=== PATIENT | female | born 1945 | race Caucasian/White ===

== ENCOUNTER → 2024-03-09 | Outpatient (CLI) | payer MEDICARE, OTHER, SELFPAY ==
[2024-03-09 17:14] LABS: Basophils # (Auto) 0.1 Thou/mm3 (0.0-0.2); Basophils % (Auto) 1 % (0-2.5); Eosinophils # (Auto) 0.1 Thou/mm3 (0.0-0.5); Eosinophils % (Auto) 1 % (0-10); Hemoglobin 10.4 g/dL (12.0-16.0); Immature Granulocytes % (Auto) 0 % (0-0); Immature Granulocytes Auto 0.02 Thou/mm3 (0.00-0.00); Lymphocytes # (Auto) 2.4 Thou/mm3 (1.0-4.8); Lymphocytes % (Auto) 30 % (10-50); Mean Corpuscular HGB Conc 30.6 g/dl (31.0-37.0); Mean Corpuscular Hemoglobin 23.9 pg (25.0-35.0); Mean Corpuscular Volume 78 fL (80-100); Monocytes # (Auto) 0.8 Thou/mm3 (0.0-0.8); Monocytes % (Auto) 10 % (0-12); Neutrophils # (Auto) 4.7 Thou/mm3 (1.8-7.7); Neutrophils % (Auto) 58 % (37-80); Nucleated Red Blood Cell % 0 /100 WBC (0); Platelet Count 269 Thou/mm3 (140-440); Red Blood Count 4.35 Miln/mm3 (4.00-5.20); White Blood Count 8.2 Thou/mm3 (3.6-11.0)
[2024-03-09 17:40] LABS: Albumin, Serum 3.7 gm/dL (3.4-4.8); Anion Gap 5 (7-16); BUN/Creatinine Ratio 22 Ratio (12-20); Blood Urea Nitrogen 20 mg/dL (9-23); Calcium (Corrected) 9.2 mg/dL (8.5-10.1); Carbon Dioxide 26.2 mMol/L (20.0-31.0); Chloride 108 mMol/L (98-107); Creatinine (Component) 0.9 mg/dL (0.6-1.3); Glucose 72 mg/dL (74-106); Osmolality,Calculated 279 (275-295); Phosphorous 3.3 mg/dL (2.4-5.1); Potassium 4.2 mMol/L (3.4-5.1); Sodium 139 mMol/L (136-145); eGFR > 60 See Note
== END | disposition home or self-care (01) ==
PROVIDERS: PCP Internal Medicine; Referring Provider Internal Medicine; Visit Provider Internal Medicine
DX: D64.9 Anemia, unspecified (principal)
CPT/HCPCS: 36415; 80069; 85025

== ENCOUNTER → 2024-05-03 | Outpatient (CLI) | payer MEDICARE, OTHER, SELFPAY ==
[2024-05-03 14:32] LABS: Basophils # (Auto) 0.1 Thou/mm3 (0.0-0.2); Basophils % (Auto) 1 % (0-2.5); Eosinophils # (Auto) 0.3 Thou/mm3 (0.0-0.5); Eosinophils % (Auto) 3 % (0-10); Hematocrit 36.2 % (36.0-46.0); Hemoglobin 11.4 g/dL (12.0-16.0); Immature Granulocytes % (Auto) 0 % (0-0); Immature Granulocytes Auto 0.02 Thou/mm3 (0.00-0.00); Lymphocytes # (Auto) 2.1 Thou/mm3 (1.0-4.8); Lymphocytes % (Auto) 22 % (10-50); Mean Corpuscular HGB Conc 31.5 g/dl (31.0-37.0); Mean Corpuscular Hemoglobin 26.4 pg (25.0-35.0); Mean Corpuscular Volume 84 fL (80-100); Monocytes # (Auto) 0.8 Thou/mm3 (0.0-0.8); Monocytes % (Auto) 8 % (0-12); Neutrophils # (Auto) 6.2 Thou/mm3 (1.8-7.7); Neutrophils % (Auto) 66 % (37-80); Nucleated Red Blood Cell % 0 /100 WBC (0); Platelet Count 251 Thou/mm3 (140-440); RDW Standard Deviation 65.9 fL (36.4-46.3); Red Blood Count 4.32 Miln/mm3 (4.00-5.20); White Blood Count 9.4 Thou/mm3 (3.6-11.0)
[2024-05-03 15:12] LABS: Anion Gap 9 (7-16); BUN/Creatinine Ratio 23 Ratio (12-20); Blood Urea Nitrogen 27 mg/dL (9-23); Calcium 9.4 mg/dL (8.3-10.6); Calcium (Corrected) 9.4 mg/dL (8.5-10.1); Carbon Dioxide 29.1 mMol/L (20.0-31.0); Chloride 103 mMol/L (98-107); Creatinine (Component) 1.2 mg/dL (0.6-1.3); Glucose 85 mg/dL (74-106); Osmolality,Calculated 285 (275-295); Phosphorous 4.5 mg/dL (2.4-5.1); Potassium 4.4 mMol/L (3.4-5.1); Sodium 141 mMol/L (136-145); eGFR 46 See Note
== END | disposition home or self-care (01) ==
LOC: COPL 13:07
PROVIDERS: PCP Internal Medicine; Referring Provider Internal Medicine; Visit Provider Internal Medicine
DX: I11.0 Hypertensive heart disease with heart failure (principal)
CPT/HCPCS: 36415; 80069; 85025

== ENCOUNTER → 2024-07-14 | Outpatient (CLI) | payer MEDICARE, OTHER, MEDICAID, SELFPAY ==
[2024-07-14 11:28] LABS: Basophils % (Auto) 1 % (0-2.5); Eosinophils # (Auto) 0.2 Thou/mm3 (0.0-0.5); Eosinophils % (Auto) 2 % (0-10); Hematocrit 37.2 % (36.0-46.0); Hemoglobin 12.1 g/dL (12.0-16.0); Immature Granulocytes % (Auto) 0 % (0-0); Immature Granulocytes Auto 0.02 Thou/mm3 (0.00-0.00); Lymphocytes # (Auto) 2.5 Thou/mm3 (1.0-4.8); Lymphocytes % (Auto) 31 % (10-50); Mean Corpuscular HGB Conc 32.5 g/dl (31.0-37.0); Mean Corpuscular Hemoglobin 28.3 pg (25.0-35.0); Mean Corpuscular Volume 87 fL (80-100); Monocytes # (Auto) 0.6 Thou/mm3 (0.0-0.8); Monocytes % (Auto) 8 % (0-12); Neutrophils # (Auto) 4.7 Thou/mm3 (1.8-7.7); Neutrophils % (Auto) 58 % (37-80); Nucleated Red Blood Cell % 0 /100 WBC (0); Platelet Count 211 Thou/mm3 (140-440); RDW Standard Deviation 57.2 fL (36.4-46.3); Red Blood Count 4.28 Miln/mm3 (4.00-5.20)
[2024-07-14 11:40] LABS: Glucose Estimated Average 100 mg/dL (80-131); Hemoglobin A1C 5.1 % Hgb (4.8-6.0)
[2024-07-14 11:44] LABS: Alanine Aminotransferase 40 U/L (10-49); Albumin, Serum 3.6 gm/dL (3.4-4.8); Albumin/Globulin Ratio 1.4 (1.2-2.2); Alkaline Phosphatase 83 U/L (46-116); Anion Gap 6 (7-16); Aspartate Amino Transferase 42 U/L (0-34); B-Type Natriuretic Peptide 565 pg/mL (0-100); BUN/Creatinine Ratio 19 Ratio (12-20); Bilirubin,Total 0.8 mg/dL (0.3-1.2); Blood Urea Nitrogen 21 mg/dL (9-23); Calcium 8.8 mg/dL (8.3-10.6); Calcium (Corrected) 9.1 mg/dL (8.5-10.1); Carbon Dioxide 30.6 mMol/L (20.0-31.0); Cardiac Risk Estimate 2.6 RATIO (3.7-5.6); Chloride 105 mMol/L (98-107); Cholesterol 120 mg/dL (132-200); Creatinine (Component) 1.1 mg/dL (0.6-1.3); Free T4 (Free Thyroxine) 1.25 ng/dL (0.89-1.76); Globulin 2.6 gm/dL (2.3-3.5); Glucose 84 mg/dL (74-106); HDL Cholesterol 46 mg/dL (40-60); LDL Cholesterol,Calculated 62 mg/dL (0-130); Osmolality,Calculated 285 (275-295); Sodium 142 mMol/L (136-145); Thyroid Stimulating Hormone 2.47 uIU/mL (0.55-4.78); Total Protein 6.2 gm/dL (5.7-8.2); Triglycerides 61 mg/dL (30-150); eGFR 51 See Note
[2024-07-14 11:48] LABS: Ferritin 36 ng/mL (7.3-270.7); Iron 43 mcg/dL (50-170); Total Iron Binding Capacity 290 mcg/dL (250-425)
[2024-07-14 11:49] LABS: Vitamin B12 540 pg/mL (211-911)
== END | disposition home or self-care (01) ==
LOC: COPL 10:24
PROVIDERS: PCP Internal Medicine; Referring Provider Internal Medicine; Visit Provider Internal Medicine
DX: E11.9 Type 2 diabetes mellitus without complications (principal); E55.9 Vitamin D deficiency, unspecified; I11.0 Hypertensive heart disease with heart failure; I50.42 Chronic combined systolic (congestive) and diastolic (congestive) heart failure
CPT/HCPCS: 36415; 80053; 80061; 82306; 82607; 82728; 83036; 83540; 83550; 83880; 84439; 84443; 85025

== ENCOUNTER 2024-10-18 10:17 | Inpatient (IN) | payer MEDICARE, MEDICAID, OTHER, SELFPAY ==
[2024-10-18] VITALS (16 sets, daily range): BP systolic 71–216; BP diastolic 40–90; PULSE 70–99; RESP 17–33; TEMP 36.3–37; O2SAT 95–99; BMI 23.7
--- NOTE | 2024-10-18 11:01 | XR_ITS ---
Examination: AP chest single view Technique one AP portable upright chest single view Date and time: October 18, 2024 1118 hours Comparison January 31, 2024 INDICATIONS: Shortness of breath dyspnea today FINDINGS: Normal heart size Prominent vascular congestion including central vascular engorgement Early septal edema at the lung bases No lobar pneumonia Prominent osteopenia IMPRESSION: Early heart failure
--- NOTE | 2024-10-18 11:03 | EKG_ITS ---
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
[2024-10-18] MEDS: FUROSEMIDE INJ 10 MG/ML VIAL 2 ML 40 MG IVP (11:07)
[2024-10-18] MEDS: hydrALAZINE INJ 20 MG/ML VIAL 10 MG IVP ×2 (11:11→12:57)
--- NOTE | 2024-10-18 11:15 | EDNOTE_ITS ---
ED SOB =RME/HPI General Chief Complaint: Shortness of Breath/Dyspnea Stated Complaint: SOB Time Seen by Provider: 10/18/24 10:39 Arrival date/time: 10/18/24 10:17 Limitations: no limitations RME / HPI RME / HPI Narrative: Send 9-year-old female is here today for increased shortness of breath. She is brought in by EMS. She states she has had increased shortness of breath for the past 3 days. She normally uses 1.5 L of oxygen by nasal cannula but has had an increase this to 4 L. She states she has worsening exertional dyspnea and orthopnea. She has known CHF and takes furosemide 40 mg once daily. She also has a history of hypertension. No history of ACS or thrombus. She states she lives in apartment with family friends. She has had no syncopal episodes or falls. She has no abdominal pain, nausea, vomiting. Related Data Home Medications ?Medication ?Instructions ?Recorded ?Confirmed atorvastatin 40 mg tablet (Lipitor) 40 mg PO QMORNING #0 tabs 06/12/16 10/18/24 carvedilol 25 mg tablet (Coreg) 25 mg PO BID #0 tabs 0 06/12/16 10/18/24 valsartan 160 mg tablet (Diovan) 160 mg PO BID 3 10/18/24 alprazolam 0.5 mg tablet (Xanax) 0.5 mg PO BID 4 10/18/24 amiodarone 100 mg tablet 100 mg PO QDAY 02/01/2409/27 furosemide 40 mg tablet 40 mg PO QDAY 02/01/2410/18 nitroglycerin 0.4 mg sublingual 0.4 mg buccal Q5MIN IA N Chest Pain 02/01/24 10/18/24 tablet (Nitrostat) potassium chloride 10 mEq 10 meq PO QDAY 02/01/2409/27 tablet,extended release (Klor-Con) sertraline 50 mg tablet (Zoloft) 75 mg PO QDAY 4 10/18/24 amiodarone 200 mg tablet 200 mg PO QDAY 10/18/2409/27 fluticasone propionate 50 2 spray intranasal QDAY PRN 06/23/25 06/23/25 mcg/actuation nasal allergy symptoms spray,suspension valsartan 80 mg tablet 80 mg PO QDAY 10/18/2410/18 Previous Rx's ?Medication ?Instructions ?Recorded empagliflozin 10 mg tablet 10 mg PO QDAY #30 tabs 12/19 (Jardiance) pantoprazole 40 mg tablet,delayed 40 mg PO BID #60 tab s 02/03/24 release ferrous sulfate 325 mg (65 mg 325 mg PO Q OTHER DAY #3 0 tabs 02/04/24 iron) tablet Allergies Allergy/AdvReac Type Severity Reaction Status Date / Time shellfish derived Allergy Severe Swelling Verified 06/12/22 11:08 of Lip/Tongue/Throat Review of Systems Review of Systems Systems Reviewed: All systems reviewed, normal except as documented ED Exam General Limitations: Present no limitations General appearance: Present alert and other (Patient is ill-appearing but nontoxic appearing.) Head Head exam: Present atraumatic Eye Eye exam: Present normal appearance, PERRL and EOMI ENT ENT exam: Present normal exam, normal oropharynx and mucous membranes moist Neck Neck exam: Present normal inspection, full ROM and trachea midline Chest Chest inspection: Present normal inspection and symmetric chest wall rise Respiratory Respiratory exam: Present other (Patient has rhonchi throughout the lung tones. She is mild to moderately tachypneic at 24 breaths/min) Cardiovascular Cardiovascular exam: Present regular rate, normal rhythm and normal heart sounds Abdominal Exam Abdominal exam: Present soft and normal bowel sounds Extremities Exam Extremities exam: Present normal inspection and full ROM Back Exam Back exam: Present normal inspection and full ROM Neurological Exam Neurological exam: Present alert, oriented X3 and CN II-XII intact Psychiatric Psychiatric exam: Present normal affect and normal mood Skin Skin exam: Present warm, dry, intact and normal color Course Quality Measures none Orders Category Date Time Status COVID-19 Screening Questionnaire NOW Care 10/18/24 11:17 Active COVID-19 Screening Questionnaire NOW Care 10/18/24 12:36 Completed Decision to Admit X1 Care 10/18/24 12:35 Completed EKG (ED ONLY) *Do not use* NOW Care 10/18/24 11:03 Completed EKG (ED Only) Stat Exams 10/18/24 11:03 Draft XR chest 1V Stat Exams 10/18/24 11:01 Completed BNP [B-Type Natriuretic Peptide] Stat Lab 10/18/24 11:16 Completed CBC Stat Lab 10/18/24 11:16 Completed CMP [Comprehensive Metabolic Panel] Stat Lab 10/18/24 11:16 Completed Lipid Panel Stat Lab 10/18/24 12:44 Completed Mag [Magnesium] Stat Lab 10/18/24 11:16 Completed Troponin I Stat Lab 10/18/24 12:44 Completed Furosemide [Lasix Inj] Med 10/18/24 11:01 Discontinued 40 mg IVP X1 ONE Morphine Inj Med 10/18/24 12:14 Discontinued 2 mg IVP X1 ONE carVEDILOL [Coreg] Med 10/18/24 11:15 Discontinued 25 mg PO X1 ONE hydrALAZINE INJ [Apresoline Inj] Med 10/18/24 11:01 Discontinued 10 mg IVP X1 ONE hydrALAZINE INJ [Apresoline Inj] Med 10/18/24 12:34 Discontinued 10 mg IVP X1 ONE Vital Signs Vital signs: Vital Signs Temperature 98.5 F 10/18/24 10:22 Pulse Rate 70 10/18/24 10:22 Respiratory Rate 20 10/18/24 10:22 Blood Pressure 204/47 H 10/18/24 10:22 Pulse Oximetry (%) 98 10/18/24 10:22 Shortness of Breath / Dyspnea MDM Narrative MDM Narrative:: Send 9-year-old female is here today for increased shortness of breath. She is brought in by EMS. She states she has had increased shortness of breath for the past 3 days. She normally uses 1.5 L of oxygen by nasal cannula but has had an increase this to 4 L. She states she has worsening exertional dyspnea and orthopnea. She has known CHF and takes furosemide 40 mg once daily. She also has a history of hypertension. No history of ACS or thrombus. She states she lives in apartment with family friends. She has had no syncopal episodes or falls. She has no abdominal pain, nausea, vomiting. During the ER course, patient received doses of hydralazine in addition to her carvedilol. She received 40 mg of furosemide. We may consider nitro if her blood pressure remains elevated. Patient was brought in by EMS. She is found to have mild hypoxia on scene and was placed on supplemental oxygen via nasal cannula. Review of chart notes reveal that she has a history of CAD and stents placed in 2006 with a history of atrial fibrillation. Case discussed with attending ER physician. At approximately 12:42 PM. Medicine was contacted for admission Case was discussed. Patient data External records reviewed:: EMS form Clinical information provided by:: patient Social determinants that could affect healthcare access:: none Patient has the following chronic illnesses:: CHF, coronary artery disease, atrial fibrillation How is presenting disease/condition affected by chronic disease/condition?: exacerbated by Evaluation data The following diagnostics were reviewed and interpreted by me:: lab results (Patient has a mild leukocytosis at 11.4 thousand, she has no metabolic deran gement, creatinine 0.7. Liver enzymes with an AST of 389, ALT 303. BNP is 1460.), radiology exam(s) (Mild cardiomegaly with mild vascular congestion.) and EKG tracing(s) (Normal sinus rhythm at [address] changes or dynamic T waves. Voltage criteria met for LVH.) Lab and/or radiology exams considered but not ordered:: Patient has no leukocytosis, she has elevated liver enzymes and a elevated BNP. Interpretation Summary: consistent with acute CHF Medications / Prescriptions Medications or Prescriptions considered but not ordered:: n/a Medication administrations:: Medication Administration History Acetaminophen (Acetaminophen 325 Mg Tablet) 650 mg PO Q6H PRN PRN Reason: PAIN SCALE 1-3 (mild Stop: 11/17/24 12:48 Albuterol/Ipratropium (Albuterol/Ipratropium (Duoneb) Rt Kia 3 Ml Nebu) 3 ml INH Q8HRRT MARLEN Stop: 11/17/24 22:59 Alprazolam (Alprazolam 0.25 Mg Tablet) 0.5 mg PO BID MARLEN Stop: 10/23/24 20:59 Last Admin: 10/18/24 21:03 Dose: 0.5 mg Documented By: AM Amiodarone HCl (Amiodarone Hcl 200 Mg Tablet) 100 mg PO QDAY MARLEN Stop: 11/17/24 15:14 Last Admin: 10/18/24 16:06 Dose: 100 mg Documented By: DB Atorvastatin Calcium (Atorvastatin Calcium 20 Mg Tablet) 40 mg PO DAILY MARLEN Stop: 11/17/24 15:14 Last Admin: 10/18/24 16:06 Dose: 40 mg Documented By: DB Azithromycin (Azithromycin 250 Mg Tablet) 250 mg PO QDAY MARLEN Stop: 10/26/24 08:59 Carvedilol (Carvedilol 12.5 Mg Tablet) 12.5 mg PO BIDWM [facility] Stop: 11/17/24 17:29 Last Admin: 10/18/24 17:40 Dose: 12.5 mg Documented By: MGD Ferrous Sulfate (Ferrous Sulf 325 Mg Tablet) 325 mg PO Q48H [facility] Stop: 11/17/24 15:14 Last Admin: 10/18/24 16:03 Dose: 325 mg Documented By: DB Furosemide (Furosemide Inj 10 Mg/Ml 4ml Vial) 40 mg IVP QDAY [facility] Stop: 11/18/24 08:59 Guaifenesin (Guaifenesin Syrup 200 Mg/10 Ml Udc) 100 mg PO QID PRN; Protocol PRN Reason: COUGH Stop: 11/17/24 17:13 Heparin Sodium (Porcine) (Heparin Sod Inj 5000 Unit/Ml Vial) 5,000 unit SC Q8HR [facility] Stop: 11/01/24 13:59 Last Admin: 10/18/24 21:03 Dose: 5,000 unit Documented By: AM Co-signed By: SS Admin: 10/18/24 16:08 Dose: 5,000 unit Documented By: DB Co-signed By: JOSE Ceftriaxone Sodium/Dextrose (Rocephin/D5w 1gm Iv Premix) 1 gm in 50 mls @ 100 mls/hr IV QDAY [facility] Stop: 10/25/24 13:44 Last Infusion: 10/18/24 16:15 Dose: Infused Documented By: Admin: 10/18/24 15:46 Dose: 100 mls/hr Documented By: DB Nitroglycerin (Nitroglycerin 0.4 Mg Subl Btl #25) 0.4 mg SL Q5MIN PRN PRN Reason: Chest Pain Stop: 11/17/24 15:03 Ondansetron HCl (Ondansetron Inj 2 Mg/Ml Inj 2 Ml) 4 mg IVP Q6H PRN; Protocol PRN Reason: NAUSEA OR VOMITING Stop: 11/17/24 12:48 Last Admin: 10/18/24 13:02 Dose: 4 mg Documented By: DB Pantoprazole Sodium (Pantoprazole Inj 40 Mg Vial) 40 mg IVP QDAY [facility] Stop: 11/18/24 08:59 Sertraline HCl (Sertraline Hcl 25 Mg Tablet) 75 mg PO QDAY [facility] Stop: 11/18/24 08:59 Valsartan (Valsartan 80 Mg Tablet) 80 mg PO QDAY [facility] Stop: 11/18/24 08:59 Discontinued Medications Azithromycin (Azithromycin 250 Mg Tablet) 500 mg PO X1 ONE Stop: 10/18/24 13:31 Last Admin: 10/18/24 16:04 Dose: 500 mg Documented By: BYRON Carvedilol (Carvedilol 12.5 Mg Tablet) 25 mg PO X1 ONE Stop: 10/18/24 11:16 Last Admin: 10/18/24 12:35 Dose: 25 mg Documented By: JOSE Furosemide (Furosemide Inj 10 Mg/Ml Vial 2 Ml) 40 mg IVP X1 ONE Stop: 10/18/24 11:02 Last Admin: 10/18/24 11:07 Dose: 40 mg Documented By: JOSE Furosemide (Furosemide Inj 10 Mg/Ml 4ml Vial) 40 mg IVP BIDD [facility] Stop: 11/17/24 17:59 Hydralazine HCl (Hydralazine Inj 20 Mg/Ml Vial) 10 mg IVP X1 ONE Stop: 10/18/24 11:02 Last Admin: 10/18/24 11:11 Dose: 10 mg Documented By: JOSE Hydralazine HCl (Hydralazine Inj 20 Mg/Ml Vial) 10 mg IVP X1 ONE Stop: 10/18/24 12:35 Last Admin: 10/18/24 12:57 Dose: 10 mg Documented By: BYRON Morphine Sulfate (Morphine Sulf Inj 10 Mg/Ml Vial) 2 mg IVP X1 ONE Stop: 10/18/24 12:15 Last Admin: 10/18/24 12:56 Dose: 2 mg Documented By: BYRON Potassium Chloride (Potassium Chloride 20 Meq Tabcr) 40 meq PO X1 ONE Stop: 10/18/24 12:52 Last Admin: 10/18/24 16:07 Dose: 40 meq Documented By: BYRON Sodium Chloride (Sodium Chloride Rt 10% 15 Ml Nebu) 5 ml INH X1 ONE Stop: 10/18/24 13:31 See above Consultations Consultation(s) initiated? (list below): No Diagnosis Shortness of Breath Differential Diagnosis: congestive heart failure, community acquired pneumonia and asthma with exacerbation Most likely diagnosis given after review of the tests above:: Acute CHF, elevated liver enzymes Admission Indicated Admission indicated?: indicated Admission Request Was there a request for admission?: Yes Admission Attestation Admission request attestation: Discussed case with [] from Hospitalist service regarding admission. Discussed patients ED course, exam findings, labs, and radiology results. The Hospitalist [agrees,declines] to accept the patient for admission. Disposition Plan Disposition Plan: Admit Discharge Plan Plan Patient Disposition: Admit Acute Care w/in Hospital Problem List Clinical Impression: Acute exacerbation of CHF (congestive heart failure), Elevated liver enzymes
[2024-10-18 11:38] LABS: Basophils # (Auto) 0.1 Thou/mm3 (0.0-0.2); Basophils % (Auto) 0 % (0-2.5); Eosinophils % (Auto) 0 % (0-10); Hematocrit 39.5 % (36.0-46.0); Hemoglobin 12.9 g/dL (12.0-16.0); Immature Granulocytes % (Auto) 0 % (0-0); Immature Granulocytes Auto 0.05 Thou/mm3 (0.00-0.00); Lymphocytes # (Auto) 1.2 Thou/mm3 (1.0-4.8); Lymphocytes % (Auto) 11 % (10-50); Mean Corpuscular HGB Conc 32.7 g/dl (31.0-37.0); Mean Corpuscular Hemoglobin 29.9 pg (25.0-35.0); Mean Corpuscular Volume 91 fL (80-100); Monocytes # (Auto) 0.8 Thou/mm3 (0.0-0.8); Monocytes % (Auto) 7 % (0-12); Neutrophils # (Auto) 9.3 Thou/mm3 (1.8-7.7); Neutrophils % (Auto) 81 % (37-80); Nucleated Red Blood Cell % 0 /100 WBC (0); Platelet Count 176 Thou/mm3 (140-440); RDW Standard Deviation 50.3 fL (36.4-46.3); Red Blood Count 4.32 Miln/mm3 (4.00-5.20); White Blood Count 11.4 Thou/mm3 (3.6-11.0)
[2024-10-18 12:00] LABS: Alanine Aminotransferase 303 U/L (10-49); Albumin, Serum 3.9 gm/dL (3.4-4.8); Albumin/Globulin Ratio 1.5 (1.2-2.2); Alkaline Phosphatase 80 U/L (46-116); Anion Gap 10 (7-16); Aspartate Amino Transferase 389 U/L (0-34); BUN/Creatinine Ratio 20 Ratio (12-20); Bilirubin,Total 1.3 mg/dL (0.3-1.2); Blood Urea Nitrogen 14 mg/dL (9-23); Calcium 8.8 mg/dL (8.3-10.6); Calcium (Corrected) 8.9 mg/dL (8.5-10.1); Carbon Dioxide 27.3 mMol/L (20.0-31.0); Chloride 106 mMol/L (98-107); Creatinine (Component) 0.7 mg/dL (0.6-1.3); Estimated Creatinine Clearance 53.9 mL/min (>60); Globulin 2.6 gm/dL (2.3-3.5); Glucose 92 mg/dL (74-106); Magnesium 2.2 mg/dL (1.6-2.6); Osmolality,Calculated 285 (275-295); Potassium 3.5 mMol/L (3.4-5.1); Sodium 143 mMol/L (136-145); Total Protein 6.5 gm/dL (5.7-8.2); eGFR > 60 See Note
[2024-10-18 12:09] LABS: B-Type Natriuretic Peptide 1460 pg/mL (0-100)
[2024-10-18] MEDS: carVEDILOL 12.5 MG TABLET 25 MG PO (12:35)
--- NOTE | 2024-10-18 12:53 | XR_ITS ---
Examination: Abdomen sonogram, complete Date and time of exam: October 18, 2024 1304 hours INDICATIONS: Elevated liver function tests on laboratory examination today. Technique: Multiple real-time grayscale transabdominal sonographic images of the abdomen have been obtained. Findings: Absent gallbladder Common bile duct 0.7 cm no stones Pancreas obscured by bowel gas Mid and distal aorta visualized not enlarged Liver 11.7 cm fatty infiltration lobular contour mild ascites Normal hepatopedal portal venous flow Patent IVC Right kidney 10.2 cm cortex 1.1 cm Left kidney 10.5 cm cortex 1.3 cm Bilateral moderate hydronephrosis Moderate bilateral renal parenchymal scar formation Spleen 7.8 cm Incidental note partial visualization left pleural effusion IMPRESSION: Cirrhosis Mild ascites No focal liver lesions Moderate bilateral hydronephrosis
[2024-10-18] MEDS: MORPHINE SULF INJ 10 MG/ML VIAL 2 MG IVP (12:56)
[2024-10-18] MEDS: ONDANSETRON INJ 2 MG/ML INJ 2 ML 4 MG IVP (13:02)
[2024-10-18 13:25] LABS: Cardiac Risk Estimate 2.7 RATIO (3.7-5.6); Cholesterol 115 mg/dL (132-200); HDL Cholesterol 43 mg/dL (40-60); LDL Cholesterol,Calculated 52 mg/dL (0-130); Triglycerides 98 mg/dL (30-150)
[2024-10-18 13:25] LABS: Glucose Estimated Average 85 mg/dL (80-131); Hemoglobin A1C 4.6 % Hgb (4.8-6.0)
--- NOTE | 2024-10-18 13:33 | PD.RESHP ---
Documentation for date of: 10/18/24 [facility] History of Present Illness History of present illness: History of Present Illness: This is a 79-year-old female with PMHx of HFpEF EEF 55%, CAD s/p stent 2006, A-fib on AMIODARONE, HTN, presented to the ED with 3 days of worsening SOB. Reports 5 days of upper respiratory symptoms, including cough containing dark yellow sputum. Since, she has been having gradually worsening SOB. She uses home oxygen, usually at night (1-2L), however she has been having to use oxygen almost all day over the last 3 days. This morning, she felt specially short of breath when she was walking to the restroom, to the point where she had to stop and take a break. She lives with a roommate, who called the ambulance this morning to bring to ED. Denies headaches, fever, chills, fall or trauma, chest pain, abdominal pain, N/V/D/C, abnormal bleeding, dysuria, urinary frequency or urgency. Also denies worsening lower extremity swelling, and no swelling was noted on exam. Additionally, she had a UTI 3 weeks ago, but only completed 3 days of ANTIBIOTICS due to poor tolerance. However reports resolution of her symptoms since. Her rn surgical is Dr. Kaye, and her last appointment was 1 month ago. Reports no changes in her meds, continue taking LASIX 40 mg daily as prescribed. She was last admitted in January 2024 for CHF exacerbation and required diuresis at that time. ECHO then showed EF 55%, normal LV size with mild LVH, RV normal size and function, dilated left atrium, mild aortic stenosis, moderate aortic regurg, mild MAC with moderate mitral regurg, mild TR with normal PA pressures. She was discharged on FUROSEMIDE 40 mg daily which she currently is taking. At the time she was also found anemic with Hgb 9.6, believed to be related to low iron stores. EGD done showed ulcers, erosive gastritis and hemorrhage. On exam, she was found to have external hemorrhoids, with streaks of blood in her stool, he did GUAIAC test which was positive. However, Hgb appears stable at 12.9. Past Medical History: HFpEF EF 55%, CAD s/p stent 2006, A-fib on AMIODARONE, HTN Past Surgical History: Right knee replacement, cholecystectomy, tubal ligation. Medications: CARVEDILOL 25 mg BID, LASIX 40 mg daily, AMIODARONE 200 mg daily, VALSARTAN 80 mg daily, ATORVASTATIN 40 mg daily, KCl 10 mg daily, NITROGLYCERIN 0.4 mg PRN, PROTONIX 40 mg daily, JARDIANCE 10 mg daily, SERTRALINE 75 mg daily, FLONASE nasal spray PRN. Allergies: Shellfish allergy ? oral swelling Family History: No relevant family history. Social History: Lives with roommate at home. Denies alcohol, drug or tobacco use. ED Course: Febrile, BP 2 4/47, HR 70, RR 20, satting 98% on 2 L. CBC showed leukocytosis 11.4, Hgb 12.9, PLT 176. CHEM panel showed TB 1.3, AST 389, ALT 303 (LFTs previously normal). BNP 1460, troponin 0.040. UA negative for UTI. CXR showed early heart failure, vascular congestion, no pneumonia. KG shows sinus rhythm, nonspecific T wave abnormalities. Abdominal ultrasound showed cirrhosis, mild ascites, no liver lesion, moderate bilateral hydronephrosis. Reason for admission: Acute hypoxemic respiratory failure in setting of CHF exacerbation requiring oxygen delivery and IV diuresis. Review of Systems Review of Systems Narrative Review of Systems: 12 point system review negative except for above mentioned. Exam Vital Signs Temp Pulse Resp BP Pulse Ox O2 Del Method O2 Flow Rate 98.4 F 79 18 148/76 H 98 Room Air 2 10/18/24 13:00 10/18/24 13:21 10/18/24 13:21 10/18/24 13:21 10/18/24 13:21 10/18/24 13:21 10/18/24 13:00 Narrative Exam GENERAL Normal appearing female, speaks in short sentences, NAD. HEENT NCAT.?NAYANA. Oral mucosa is moist. Patent Nares NECK Supple, nontender, no thyromegaly, no meningismus, possible mild JVD, no step offs CHEST Regular rate and rhythm, mild systolic murmur, no G/R. ABDOMEN Soft, flat, nontender. No guarding/rebound tenderness/masses. Bowel sounds presents EXTREMITIES Did not appreciate significant LE edema bialterally. SKIN Warm and dry, no jaundice/rashes. External anal hemorrhoid, with mild bleed. NEUROMUSCULAR No lumbar or midline, no CVA, no paraspinal muscle spasm or tenderness. Moves all 4 extremities well, with full ROM and good CSM. No focal neurologic deficits. PSYCHIATRY Normal mood and affect, cooperative, no SI or HI or hallucinations. Results: Labs 10/20/24 05:02 10/20/24 05:02 Labs: Short CBC 10/18/24 Range/Units 11:16 WBC 11.4 H (3.6-11.0) Thou/mm3 Hgb 12.9 (12.0-16.0) g/dL Hct 39.5 (36.0-46.0) % Plt Count 176 (140-440) Thou/mm3 BMP 10/18/24 11:16 Sodium 143 Potassium 3.5 Chloride 106 Carbon Dioxide 27.3 BUN 14 Creatinine 0.7 Glucose 92 Calcium 8.8 Cardiac Enzymes 10/18/24 Range/Units 12:44 Troponin I 0.040 (0.0-0.045) ng/mL Liver Function 10/18/24 Range/Units 11:16 Total Bilirubin 1.3 H (0.3-1.2) mg/dL AST 389 H (0-34) U/L ALT 303 H (10-49) U/L Alkaline Phosphatase 80 (46-116) U/L Albumin 3.9 (3.4-4.8) gm/dL Quality Measures Quality Measures VTE prophylaxis Advance care planning discussed with:: patient Medications Home Medications and Allergies Home Medications ?Medication ?Instructions ?Recorded ?Confirmed ?Type atorvastatin 40 mg tablet (Lipitor) 40 mg PO QMORNING #0 tabs 06/12/16 10/18/24 History carvedilol 25 mg tablet (Coreg) 25 mg PO BID #0 tabs 06/12/16 10/18/24 History alprazolam 0.5 mg tablet (Xanax) 0.5 mg PO BID 02/01/24 10/18/24 History furosemide 40 mg tablet 40 mg PO QDAY 02/01/24 10/18/24 History nitroglycerin 0.4 mg sublingual 0.4 mg buccal Q5MIN PRN Chest Pain 02/01/24 10/18/24 History tablet (Nitrostat) potassium chloride 10 mEq 10 meq PO QDAY 02/01/24 10/18/24 History tablet,extended release (Klor-Con) sertraline 50 mg tablet (Zoloft) 75 mg PO QDAY 02/01/24 10/18/24 History amiodarone 200 mg tablet 200 mg PO QDAY 10/18/24 10/18/24 History fluticasone propionate 50 2 spray intranasal QDAY PRN 10/18/24 10/18/24 History mcg/actuation nasal allergy symptoms spray,suspension valsartan 80 mg tablet 80 mg PO QDAY 10/18/24 10/18/24 History Allergies Allergy/AdvReac Type Severity Reaction Status Date / Time shellfish derived Allergy Severe Swelling Verified 06/12/22 11:08 of Lip/Tongue/Throat Visit Medications Acetaminophen (Acetaminophen 325 Mg Tablet) 650 mg PO Q6H PRN PRN Reason: PAIN SCALE 1-3 (mild Stop: 11/17/24 12:48 Carvedilol (Carvedilol 12.5 Mg Tablet) 12.5 mg PO BIDWM [facility] Stop: 11/17/24 17:29 Furosemide (Furosemide Inj 10 Mg/Ml 4ml Vial) 40 mg IVP BIDD [facility] Stop: 11/17/24 17:59 Heparin Sodium (Porcine) (Heparin Sod Inj 5000 Unit/Ml Vial) 5,000 unit SC Q8HR [facility] Stop: 11/01/24 13:59 Ondansetron HCl (Ondansetron Inj 2 Mg/Ml Inj 2 Ml) 4 mg IVP Q6H PRN; Protocol PRN Reason: NAUSEA OR VOMITING Stop: 11/17/24 12:48 Last Admin: 10/18/24 13:02 Dose: 4 mg Pantoprazole Sodium (Pantoprazole Inj 40 Mg Vial) 40 mg IVP QDAY [facility] Stop: 11/18/24 08:59 Valsartan (Valsartan 80 Mg Tablet) 80 mg PO QDAY [facility] Stop: 11/18/24 08:59 Discontinued Medications Carvedilol (Carvedilol 12.5 Mg Tablet) 25 mg PO X1 ONE Stop: 10/18/24 11:16 Last Admin: 10/18/24 12:35 Dose: 25 mg Furosemide (Furosemide Inj 10 Mg/Ml Vial 2 Ml) 40 mg IVP X1 ONE Stop: 10/18/24 11:02 Last Admin: 10/18/24 11:07 Dose: 40 mg Hydralazine HCl (Hydralazine Inj 20 Mg/Ml Vial) 10 mg IVP X1 ONE Stop: 10/18/24 11:02 Last Admin: 10/18/24 11:11 Dose: 10 mg Hydralazine HCl (Hydralazine Inj 20 Mg/Ml Vial) 10 mg IVP X1 ONE Stop: 10/18/24 12:35 Last Admin: 10/18/24 12:57 Dose: 10 mg Morphine Sulfate (Morphine Sulf Inj 10 Mg/Ml Vial) 2 mg IVP X1 ONE Stop: 10/18/24 12:15 Last Admin: 10/18/24 12:56 Dose: 2 mg Potassium Chloride (Potassium Chloride 20 Meq Tabcr) 40 meq PO X1 ONE Stop: 10/18/24 12:52 Assessment & Plan Plan This is a 79-year-old female with PMHx of HFpEF EEF 55%, CAD s/p stent 2006, A-fib on AMIODARONE, HTN, presented to the ED with 3 days of worsening SOB, likely in the setting of respiratory infection. Appreciate recommendations from cardiology team. HFpEF with acute exacerbation Acute hypoxic respiratory failure Possible upper respiratory infection CAD s/p stents 2006 Presenting with 3 days of worsening shortness of breath, required daily 4 L of oxygen, creased from her baseline. Limited day-to-day activity secondary to shortness of breath. Reports compliance with hemodialysis, no signs or symptoms of lower extremity edema, reported baseline urine output without signs of retention. Denies increased fluid intake. CHF exacerbation likely related to URI which started last week. Currently complaining of dark yellow sputum, has mild leukocytosis but no fever. ECHO in 01/2024 showed EF 55%, normal LV size with mild LVH, RV normal size and function, dilated left atrium, mild aortic stenosis, moderate aortic regurg, mild MAC with moderate mitral regurg, mild TR with normal PA pressures. She had a stent in 2006. LHC in 05/2022 showed 40% stenosis of proximal left circumflex artery; Widely patent stent involving left anterior descending artery. She has NITROGLYCERIN prescribed for chest pain, however currently not taking any. On exam she had possible JVD, bilateral lung crackles, but no lower extremity edema. BNP is elevated. CXR showed vascular congestion. CT abdominal pelvis showed small left pleural effusion and trace pericardial effusion. Renal function is normal. COVID was negative. Currently satting well on 2 L NC. Denies chest pain. ? Maintain K > 4.0 and Mg > 2.0 ? Strict GIANNA's ? Fluid restriction 1200 cc daily ? Monitor renal function ? Continue home CARVEDILOL 25 mg BID ? Continue LASIX 40 mg IV BID ? Continue CEFTRIAXONE (10/18 to present) and AZITHROMYCIN (10/18 to present) ? Pending repeat echocardiogram ? Pending influenza A/B, sputum, urine and blood cultures. ? Pending A1c, lipid panel, TSH, free T4 Bilateral moderate hydronephrosis As seen on ultrasound. UA otherwise nonconcerning. Reports adequate urine output at home. CT abdomen showed 2 mm left renal stone, mild bilateral hydronephrosis, bilateral urinary tract infection and cystitis. ? Continue with CEFTRIAXONE as above ? Pending urine culture HTN HLD Aortic stenosis Hx A-fib Per record review, previously had hypertensive emergency with A-fib on EKG which resolved with CARVEDILOL, and continued on AMIODARONE which she currently is taking. EKG this time showed sinus rhythm with nonspecific ST changes. ? Continue home AMIODARONE 200 mg q. day ? Continue home VALSARTAN 80 mg daily ? Continue home CARVEDILOL 25 mg BID ? Continue home ATORVASTATIN 40 mg daily ? Pending lipid panel Hx Iron deficiency anemia External hemorrhoid, with mild bleed External hemorrhoid noted on exam, with mild streaks of blood. GUAIAC test was positive. Although hemoglobin is within normal range. ? Continue home iron supplements ? Daily labs ? Transfuse if Hgb <8 Health maintenance Diet: Cardiac GI prophylaxis: PROTONIX DVT prophylaxis: HEPARIN subcu Antibiotics: CEFTRIAXONE, AZITHROMYCIN CODE STATUS: DNR Disposition: Admitted for CHF exacerbation, requiring IV DIURETICS, pending workup. Case was discussed with attending physician and senior resident. Harshal Mccormick DO PGYI This document was transcribed using voice recognition technology. Minor inaccuracies may be present. Attending Provider Attestation/Addendum Bradford, Alix Giron DO, attest that I was physically present for the gil portions of the service and evaluated the patient with the resident and I reviewed and discussed the case with the resident and agree with the resident's findings and plans of care as documented above Patient is a 79-year-old female with past medical history of CAD, A-fib, hypertension and heart failure with preserved ejection fraction who presents to the ED with 5 days of cough, productive sputum and worsening shortness of breath. At baseline, patient wears 2 L nasal cannula as needed at night. However, she has noted to require using her oxygen almost every day. Patient also noticed increased difficulty with ambulation due to dyspnea on exertion. She was recently treated for a UTI as well, but did not complete the full treatment of her antibiotics. On initial presentation, chest x-ray shows possible early heart failure. Suspect atypical and gram negative pneumonia. Will admit patient to telemetry for acute hypoxic respiratory failure 2/2 pneumonia versus fluid overload 2/2 CHF. Willl continue IV diuresis and titrate O2 as tolerated.
[2024-10-18 14:00] LABS: Hepatitis A Antibody IgM Non Reactive (Non React); Hepatitis B Core Antibody IgM Non Reactive (Non React); Hepatitis B Surface Antigen Non Reactive (Non React); Hepatitis C Antibody Non Reactive (Non React)
[2024-10-18 14:09] LABS: OBS Developer Lot # 424; OBS Performed By BOTED; OBS QC OK? Yes; Occult Blood, Stool Positive (Negative)
--- NOTE | 2024-10-18 14:19 | XR_ITS ---
Examination: CT abdomen and pelvis without contrast. Coronal 3-D reconstructions. Sagittal 2-D reconstructions. Date and time of exam:October 18, 2024 1434 hours INDICATIONS: Bilateral hydronephrosis on renal sonogram today, abdominal pain CTDI: vol (mGy): 5 DLP: (mGycm): 286 Technique: Axial images of the abdomen have been obtained, 3 mm slice thickness Intravenous contrast material has not been administered. Low dose protocols were performed. One or more of the following dose reduction techniques were used; automated exposure control, adjustment of the mA and/or KV according to patient size, use of iterative reconstruction technique. Findings: Mild enlargement cardiac contour, trace pericardial effusion Small left pleural effusion Intrahepatic biliary tract dilatation, absent gallbladder Common bile duct 10 mm no common bile duct stones No pancreatic mass Normal adrenal glands 2 mm left renal calculus Mild bilateral hydronephrosis, wall thickening involving the pelvicalyceal systems No ureteral calculi No pericecal inflammatory change No bowel obstruction No diverticulitis Air in the urinary bladder with urinary bladder wall thickening urinary bladder Worthy catheter Severe osteopenia IMPRESSION: 2 mm left renal calculus Findings most consistent with bilateral urinary tract infection and cystitis
[2024-10-18] MEDS: cefTRIAXone/D5w 1gm IV premix 1 GM/50 ML BAG IV (15:46)
[2024-10-18] MEDS: FERROUS SULF 325 MG TABLET PO (16:03)
[2024-10-18] MEDS: AZITHROMYCIN 250 MG TABLET 500 MG PO (16:04)
[2024-10-18] MEDS: ATORVASTATIN CALCIUM 20 MG TABLET 40 MG PO (16:06)
[2024-10-18] MEDS: AMIODARONE HCL 200 MG TABLET 100 MG PO (16:06)
[2024-10-18] MEDS: POTASSIUM CHLORIDE 20 mEq TABCR 40 MEQ PO (16:07)
[2024-10-18] MEDS: HEPARIN SOD INJ 5000 UNIT/ML VIAL SC ×2 (16:08→21:03)
[2024-10-18 17:07] LABS: COVID-19 Antigen (In-House) Negative (Negative)
[2024-10-18] MEDS: carVEDILOL 12.5 MG TABLET PO (17:40)
--- NOTE | 2024-10-18 17:52 | PD.RESCONSUL ---
HPI Data of Consult Requesting Physician: Alix Giron DO Admitting Provider: Alix Giron DO Attending Provider: Alix Giron DO Primary Care Provider: Tha Swift MD Consult Narrative History of present illness: cc: worsening shortness of breath Patient is a 79-year-old female with a past medical history of CAD status post angioplasty and stent placement (2006), CHF HFpEF 55% (01/31/2024), Aortic fibrillation (Likely paroxysmal),aortic stenosis V-max 2.6, hyperlipidemia, and hypertension. Patient presented to the emergency room via EMS with a chief complaint of shortness of breath starting Friday and worsening today. Patient positive for orthopnea, typically sleeps upright. Denied paroxysmal nocturnal dyspnea likely secondary to home oxygen use only at night, 1.5 L. Dyspnea with exertion. Patient denied lower peripheral edema. Patient denied chest pain or chest pressure. Patient denied any recent sick contacts. Patient denied fevers or chills. Increased cough over the last 3 days, first noted on Friday. Patient overall has been feeling tired and has skipped her medications for the past 3 days. Patient continues to take carvedilol half a dose 25 mg likely half a dose, amiodarone 200, and Jardiance 10 mg daily. Home Lasix dose at 40 mg daily. Patient denied increase fluid intake. Patient denied increased salt intake. No Eliquis noted as part of home medication list. Patient admitted by primary team for acute on chronic chf exacerbation. Cardiology consulted for CHF exacerbation-this is a known patient of Dr. Charles. Vitals BP 204/47, HR 70, RR 20, on 2 L oxygen saturating at 97%--> blood pressure improved 133/79 WBC count 11.4 CMP NA 143, potassium 3.5, chloride 106, bicarb 27.3 BUN 14, creatinine 0.7, GFR greater than 60, A1c 4.6, mag 2.2, total bili 1.3, AST is 389, ALT 303 (elevated) Troponin 0.04 EKG sinus rhythm, QT C388 Lipid panel (10/18/2024) triglycerides 78, cholesterol 115, LDL 52, HDL 43 Stool occult positive (10/18/2024) on iron tablets Medications in the ER: Lasix 40 mg IV push x 1, hydralazine 10 mg IV push x 2, morphine 2 mg IV push x 1, ceftriaxone PMH: Same as above Past Surgical History: Arthroplasty CAD status post stent 2006 Home Medication: Alprazolam 0.5 twice daily Amiodarone 200 daily Atorvastatin for 80 mg p.o. at bedtime Carvedilol 12.5 twice daily (?) Jardiance 10 mg daily Lasix 40 mg daily Nitroglycerin subcu 0.4 as needed Protonix 40 mg daily Sertraline 75 mg daily Valsartan 80 mg daily (?) Past family history Mother diabetes and son heart attack late in life Father heart disease, unsure diagnosis, late 60s Social History: Smoked for about 10 years a pack a day--> [id number] history (early 20s) Denied alcohol use Denied illicit drug use Allergies: Shellfish derived products cc:: cc: Alix Giron, Review of Systems Review of Systems Narrative Review of Systems: General appearance: NO weight change, YES fatigue, NO weakness, NO fever, NO chills, NO night sweats, YES cough Skin: NO rash, NO itching, NO sores, NO moles HEENT: NO Trauma, NO nausea, NO vomiting, NO visual changes, NO blurry vision, NO double vision, NO tinnitus, NO vertigo, NO ear discharge, NO rhinorrhea, NO stuffiness, NO sneezing, NO allergy, NO epistaxis. NO Hoarseness, NO sore throat, NO swollen neck. Cardiac: NO Palpitations, YES dyspnea on exertion, YES orthopnea-baseline sleeps with bed upright, NO paroxysmal nocturnal dyspnea but on home oxygen, NO edema Respiratory: NO Shortness of Breath, NO Wheezing, NO Cough, NO Sputum, NO hemoptysis GI:NO appetite, NO nausea, NO vomiting, NO dysphagia, NO changes in bowel frequency, NO stool color, NO diarrhea, NO constipation, NO hemetemesis, NO hemorrhoids, NO melena, NO hematechezia, NO abdominal pain, NO jaundice Renal: NO frequency, NO hesitancy, NO urgency, NO hematuria, NO nocturia, NO incontinence MSK: NO muscle weakness, NO gout, NO arthritis, NO muscle stiffness Neuro: NO headaches, NO tremors, NO weakness, NO paralysis, NO seizures, NO loss of consciousness, NO numbness. Hem: NO anemia, NO easy bruising/bleeding, NO petechiae, NO purpura Endo: NO heat/cold intolerance, NO excessive sweating, NO polyuria, NO polydipsia, NO polyphagia, NO thyroid problems, NO diabetes Pysch: NO mood, NO anxiety, NO depression Exam Vital Signs Temp Pulse Resp BP Pulse Ox O2 Del Method O2 Flow Rate 98.6 F 75 27 H 153/79 H 99 Nasal Cannula 2 10/18/24 17:31 10/18/24 17:40 10/18/24 17:31 10/18/24 17:40 10/18/24 17:31 10/18/24 17:31 10/18/24 17:31 Narrative Exam General Appearance: Alert & Oriented X3, thin female who is lying in bed in no acute distress HEENT: Skull symmetrical and atraumatic. Conjunctivae pale pink and moist. Pupils equal, round, reactive to light and accommodation (PERRL). Oral mucosa appears dry. Cardio: Normal Rate and Rhythm with S1 and S2 heart sounds. Holosystolic murmur noted over aortic and mitral region. No bruits on carotid auscultation. No peripheral edema or cyanosis. Lungs: Symmetric with good expansion. Chest and back non-tender. Breath sounds vesicular without crackles, wheezing or rhonchi Abdomen: Non-tender, Non-distended, Normal Reactive Bowel Sounds Neuro: Alert, cooperative, oriented to person, place, and time. Speech clear. CN grossly intact. Upper motor strength 5/5 and Lower motor strength 5/5. Sensation intact. Results Labs 10/19/24 05:07 10/19/24 05:07 Labs: Short CBC 10/18/24 Range/Units 11:16 WBC 11.4 H (3.6-11.0) Thou/mm3 Hgb 12.9 (12.0-16.0) g/dL Hct 39.5 (36.0-46.0) % Plt Count 176 (140-440) Thou/mm3 BMP 10/18/24 11:16 Sodium 143 Potassium 3.5 Chloride 106 Carbon Dioxide 27.3 BUN 14 Creatinine 0.7 Glucose 92 Calcium 8.8 Cardiac Enzymes 10/18/24 Range/Units 12:44 Troponin I 0.040 (0.0-0.045) ng/mL Liver Function 10/18/24 Range/Units 11:16 Total Bilirubin 1.3 H (0.3-1.2) mg/dL AST 389 H (0-34) U/L ALT 303 H (10-49) U/L Alkaline Phosphatase 80 (46-116) U/L Albumin 3.9 (3.4-4.8) gm/dL Quality Measures Quality Measures VTE prophylaxis Advance care planning discussed with:: patient Medications Home Medications and Allergies Home Medications ?Medication ?Instructions ?Recorded ?Confirmed ?Type atorvastatin 40 mg tablet (Lipitor) 40 mg PO QMORNING #0 tabs 06/12/16 10/18/24 History carvedilol 25 mg tablet (Coreg) 25 mg PO BID #0 tabs 06/12/16 10/18/24 History valsartan 160 mg tablet (Diovan) 160 mg PO BID 06/12/22 10/18/24 History alprazolam 0.5 mg tablet (Xanax) 0.5 mg PO BID 02/01/24 10/18/24 History amiodarone 100 mg tablet 100 mg PO QDAY 02/01/24 10/18/24 History furosemide 40 mg tablet 40 mg PO QDAY 02/01/24 10/18/24 History nitroglycerin 0.4 mg sublingual 0.4 mg buccal Q5MIN PRN Chest Pain 02/01/24 10/18/24 History tablet (Nitrostat) potassium chloride 10 mEq 10 meq PO QDAY 02/01/24 10/18/24 History tablet,extended release (Klor-Con) sertraline 50 mg tablet (Zoloft) 75 mg PO QDAY 02/01/24 10/18/24 History amiodarone 200 mg tablet 200 mg PO QDAY 10/18/24 10/18/24 History fluticasone propionate 50 2 spray intranasal QDAY PRN 10/18/24 10/18/24 History mcg/actuation nasal allergy symptoms spray,suspension valsartan 80 mg tablet 80 mg PO QDAY 10/18/24 10/18/24 History Allergies Allergy/AdvReac Type Severity Reaction Status Date / Time shellfish derived Allergy Severe Swelling Verified 06/12/22 11:08 of Lip/Tongue/Throat Visit Medications Acetaminophen (Acetaminophen 325 Mg Tablet) 650 mg PO Q6H PRN PRN Reason: PAIN SCALE 1-3 (mild Stop: 11/17/24 12:48 Albuterol/Ipratropium (Albuterol/Ipratropium (Duoneb) Rt Kia 3 Ml Nebu) 3 ml INH Q8HRRT [facility] Stop: 11/17/24 22:59 Alprazolam (Alprazolam 0.25 Mg Tablet) 0.5 mg PO BID [facility] Stop: 10/23/24 20:59 Amiodarone HCl (Amiodarone Hcl 200 Mg Tablet) 100 mg PO QDAY [facility] Stop: 11/17/24 15:14 Last Admin: 10/18/24 16:06 Dose: 100 mg Atorvastatin Calcium (Atorvastatin Calcium 20 Mg Tablet) 40 mg PO DAILY [facility] Stop: 11/17/24 15:14 Last Admin: 10/18/24 16:06 Dose: 40 mg Azithromycin (Azithromycin 250 Mg Tablet) 250 mg PO QDAY [facility] Stop: 10/26/24 08:59 Carvedilol (Carvedilol 12.5 Mg Tablet) 12.5 mg PO BIDWM [facility] Stop: 11/17/24 17:29 Last Admin: 10/18/24 17:40 Dose: 12.5 mg Ferrous Sulfate (Ferrous Sulf 325 Mg Tablet) 325 mg PO Q48H [facility] Stop: 11/17/24 15:14 Last Admin: 10/18/24 16:03 Dose: 325 mg Furosemide (Furosemide Inj 10 Mg/Ml 4ml Vial) 40 mg IVP QDAY [facility] Stop: 11/18/24 08:59 Guaifenesin (Guaifenesin Syrup 200 Mg/10 Ml Udc) 100 mg PO QID PRN; Protocol PRN Reason: COUGH Stop: 11/17/24 17:13 Heparin Sodium (Porcine) (Heparin Sod Inj 5000 Unit/Ml Vial) 5,000 unit SC Q8HR [facility] Stop: 11/01/24 13:59 Last Admin: 10/18/24 16:08 Dose: 5,000 unit Ceftriaxone Sodium/Dextrose (Rocephin/D5w 1gm Iv Premix) 1 gm in 50 mls @ 100 mls/hr IV QDAY [facility] Stop: 10/25/24 13:44 Last Infusion: 10/18/24 16:15 Dose: Infused Nitroglycerin (Nitroglycerin 0.4 Mg Subl Btl #25) 0.4 mg SL Q5MIN PRN PRN Reason: Chest Pain Stop: 11/17/24 15:03 Ondansetron HCl (Ondansetron Inj 2 Mg/Ml Inj 2 Ml) 4 mg IVP Q6H PRN; Protocol PRN Reason: NAUSEA OR VOMITING Stop: 11/17/24 12:48 Last Admin: 10/18/24 13:02 Dose: 4 mg Pantoprazole Sodium (Pantoprazole Inj 40 Mg Vial) 40 mg IVP QDAY [facility] Stop: 11/18/24 08:59 Sertraline HCl (Sertraline Hcl 25 Mg Tablet) 75 mg PO QDAY [facility] Stop: 11/18/24 08:59 Valsartan (Valsartan 80 Mg Tablet) 80 mg PO QDAY [facility] Stop: 11/18/24 08:59 Discontinued Medications Azithromycin (Azithromycin 250 Mg Tablet) 500 mg PO X1 ONE Stop: 10/18/24 13:31 Last Admin: 10/18/24 16:04 Dose: 500 mg Carvedilol (Carvedilol 12.5 Mg Tablet) 25 mg PO X1 ONE Stop: 10/18/24 11:16 Last Admin: 10/18/24 12:35 Dose: 25 mg Furosemide (Furosemide Inj 10 Mg/Ml Vial 2 Ml) 40 mg IVP X1 ONE Stop: 10/18/24 11:02 Last Admin: 10/18/24 11:07 Dose: 40 mg Furosemide (Furosemide Inj 10 Mg/Ml 4ml Vial) 40 mg IVP BIDD [facility] Stop: 11/17/24 17:59 Hydralazine HCl (Hydralazine Inj 20 Mg/Ml Vial) 10 mg IVP X1 ONE Stop: 10/18/24 11:02 Last Admin: 10/18/24 11:11 Dose: 10 mg Hydralazine HCl (Hydralazine Inj 20 Mg/Ml Vial) 10 mg IVP X1 ONE Stop: 10/18/24 12:35 Last Admin: 10/18/24 12:57 Dose: 10 mg Morphine Sulfate (Morphine Sulf Inj 10 Mg/Ml Vial) 2 mg IVP X1 ONE Stop: 10/18/24 12:15 Last Admin: 10/18/24 12:56 Dose: 2 mg Potassium Chloride (Potassium Chloride 20 Meq Tabcr) 40 meq PO X1 ONE Stop: 10/18/24 12:52 Last Admin: 10/18/24 16:07 Dose: 40 meq Sodium Chloride (Sodium Chloride Rt 10% 15 Ml Nebu) 5 ml INH X1 ONE Stop: 10/18/24 13:31 Assessment & Plan Plan Patient is a 79-year-old female with a past medical history of CAD status post angioplasty and stent placement (2006), CHF HFpEF 55% (01/31/2024), Aortic fibrillation (Likely paroxysmal), mild aortic stenosis V-max 2.6, hyperlipidemia, and hypertension. Patient was admitted for CHF exacerbation and acute hypoxic respiratory failure required increased NC. #Acute hypoxic respiratory failure mostly secondary to CHF exacerbation and questionable pneumonia #Acute on Chronic diastolic congestive Heart Failure #CHF HFpEF 55% (01/31/2024) # Mild aortic stenosis, V-max 2.6 Patient has a past medical history of congestive heart failure, patient is unsure what triggered event, but since Friday morning patient has had increased fatigue and weakness. Given mild elevation in AST's and ALT's consider hepatal cardio versus infectious pulmonary cause such as upper respiratory tract infection versus diet noncompliance. Worsening symptoms less likely secondary to an PR as troponins are unremarkable at 0.04 and denied chest pain versus pneumonia. Flu negative Diagnostics Echo 01/31/2024 : Normal LV size. Mild LVH. Estimated EF 55%. RV is normal in size and systolic function.dilated left atrium, mild aortic stensois Vmax 2.6m/sec with mild to moderate aortic regurgitation Mild MAC with moderate mitral regurgitation Mild TR normal PA pressure Chest x-ray early heart failure with prominent vascular congestion Troponin 0.04 BMP 1460 NYHA: III ASCVD: [facility], hold off given AST/ALTs Plan -Lasix 40 twice daily - Aggressive diuresis - Continue carvedilol consider starting at 12.5 mg twice daily/pending dose confirmation - Potassium greater than 4 and magnesium greater than 2 -Echo -Fluid restriction (1500) and in and outs; limits salt intake 2 grams -head of the bed elevated -Daily weight check s -Work toward guideline directed medical treatment, hold off on Jardiance and reevaluate #History Paroxysmal atrial fibrillation Patient has a past medical history of atrial fibrillation, medication includes amiodarone 200 mg p.o. a daily and carvedilol. Consider resuming amiodarone at same dose as patient appears in sinus rhythm. [id number] HAS BLED: 2 points Plan -Holding off Eliquis, as occult blood positive, low suspicion, re-evaluate AM - Potassium greater than 4 and magnesium greater than 2 cafeteria monitor Carvedilol and amiodarone resumed #CAD status post angioplasty and stent (2006) #Hyperlipidemia Patient has no chest pain or chest pressure, EKG does not show any evidence of any ischemia with any ST-T changes troponins negative. Patient has past medical history of hyperlipidemia on statin placement Plan -Hold off on all atorvastatin 40 mg p.o. at bedtime given mild transaminitis - No aspirin listed, consider resuming if low specific suspicion for GI bleed -Continue beta-veronica #Hypertensive emergency, improved #History of hypertension Resume home medication of carvedilol consider starting at 12.5 mg twice daily as patient stated she struggles with hypotension. Valsartan 80 mg daily as a home medication. Plan - Continue to monitor patient's blood pressure - Resume carvedilol at a lower dose 12.5 mg twice daily versus 25 mg twice daily - Consider resuming valsartan 80 mg daily #Luekocytosis #Possible, CAP #Cough Concern possible URI vs CAP vs reactive leukocytosis with chieft complains of productive cough and fatigue. Flu negative. COVID Negative -Ceftraixone and Azithroymcin (10/18/2024) -Sputum Culture -Consider Cocci # Possible cirrhosis likely secondary to CHAVIS #Fatty liver infiltrates with ascites #Hyperbilirubinemia #Transaminitis Patient denied abdominal discomforts or diarrhea. Mild transaminitis likely secondary medication induced as patient is on atorvastatin versus hepatal cardiorenal syndrome versus hepatitis versus less likely secondary to choledocholithiasis as patient has past medical history of cholecystectomy versus CHAVIS Diagnostics CT abdomen pelvis: Common bile duct 10 mm, no common bile duct stones no pancreatic masses. Diagnostics Abdomen ultrasound common bile duct 0.7 mm no stone, liver 11.7 fatty infiltration some lobular contour mild ascites, normal hepatic portal venous flow. Abdomen/Pelvis-2 mm left renal calculus. Mild to bilateal hydronephrosis. AST 389 and ALT 303, Tototal Bilirubin 1.3 Plan - Continue to monitor AST's and ALT's - Consider hepatitis panel-->Negative - Consider holding atorvastatin and also adverse effect of amiodarone - Outpatient follow-up with GI specialist #Essential finding of bilateral hydronephrosis #Leuocytosis #2 mm left renal calculi On admission patient denied any abdominal tenderness or urinary symptoms. No UA on file. Plan -Continue to monitor urine output although stone is small - Continue to monitor for signs infection given leukocytosis -UA culture pending #History of Esophageal Ulcers #Erosive Gastritis w/ hemorrhage Past medical history of esophageal ulcers and erosive gastritis w/ hemorrhage s/p EGD (01/31/2024. Likely underlying cause of occult stool positive vs iron plan -Resume Protonix -Recommended for outpatinet colonoscopy, unsure if patient followed up #Hx of MIcrocytic Anemia #Occult Blood Positive Denied stefany blood, no anemia noted during this admission. Past medical histoyr of Microcytic Anemia, started on iron tables. Health Maintenance: Disp: Pt is currently admitted to floors for further management of admitted for CHF exacerbation, cardiology following. FEN: cardiac DVT: on subQ heparin Code: DNR - The patient's plan was discussed with attending Dr. Sherrie Juarez MD PGY1 Internal Medicine Attending Provider Attestation/Addendum I have personally seen and examined the patient separately on the above date of service and discussed the plan of care with the resident. I reviewed the resident Dr. Kim Juarez consultation progress note and agree with the resident findings and plan in the note above and have also edited the documentation to reflect my findings and plan. Bharat Balderas M.D. Interventional Cardiology
[2024-10-18] MEDS: ALPRazoLAM 0.25 MG TABLET 0.5 MG PO (21:03)
[2024-10-18] MEDS: ALBUTEROL/IPRATROPIUM (Duoneb) RT SOL 3 ML NEBU INH (22:15)
[2024-10-19] VITALS (15 sets, daily range): BP systolic 116–153; BP diastolic 47–57; PULSE 63–76; RESP 14–22; TEMP 36.4–37.4; O2SAT 94–99; BMI 23.5
[2024-10-19] MEDS: guaiFENesin SYRUP 200 MG/10 ML UDC 100 MG PO ×5 (04:29→21:01)
[2024-10-19] MEDS: ACETAMINOPHEN 325 MG TABLET 650 MG PO (04:29)
[2024-10-19] MEDS: HEPARIN SOD INJ 5000 UNIT/ML VIAL SC ×3 (05:31→21:01)
[2024-10-19 06:11] LABS: Basophils # (Auto) 0.1 Thou/mm3 (0.0-0.2); Basophils % (Auto) 1 % (0-2.5); Eosinophils % (Auto) 0 % (0-10); Hematocrit 34.8 % (36.0-46.0); Hemoglobin 11.2 g/dL (12.0-16.0); Immature Granulocytes % (Auto) 0 % (0-0); Immature Granulocytes Auto 0.04 Thou/mm3 (0.00-0.00); Lymphocytes # (Auto) 2.5 Thou/mm3 (1.0-4.8); Lymphocytes % (Auto) 26 % (10-50); Mean Corpuscular HGB Conc 32.2 g/dl (31.0-37.0); Mean Corpuscular Hemoglobin 29.9 pg (25.0-35.0); Mean Corpuscular Volume 93 fL (80-100); Monocytes # (Auto) 0.9 Thou/mm3 (0.0-0.8); Monocytes % (Auto) 9 % (0-12); Neutrophils # (Auto) 6.2 Thou/mm3 (1.8-7.7); Neutrophils % (Auto) 64 % (37-80); Nucleated Red Blood Cell % 0 /100 WBC (0); Platelet Count 163 Thou/mm3 (140-440); RDW Standard Deviation 51.8 fL (36.4-46.3); Red Blood Count 3.74 Miln/mm3 (4.00-5.20); White Blood Count 9.7 Thou/mm3 (3.6-11.0)
[2024-10-19 06:32] LABS: INR 1.1 (0.9-1.3); Prothrombin Time 11.7 Seconds (9.0-12.2)
[2024-10-19 06:34] LABS: Alanine Aminotransferase 339 U/L (10-49); Albumin, Serum 3.2 gm/dL (3.4-4.8); Albumin/Globulin Ratio 1.4 (1.2-2.2); Alkaline Phosphatase 63 U/L (46-116); Anion Gap 8 (7-16); Aspartate Amino Transferase 393 U/L (0-34); BUN/Creatinine Ratio 22 Ratio (12-20); Blood Urea Nitrogen 22 mg/dL (9-23); Calcium 8.3 mg/dL (8.3-10.6); Calcium (Corrected) 8.9 mg/dL (8.5-10.1); Carbon Dioxide 29.1 mMol/L (20.0-31.0); Chloride 106 mMol/L (98-107); Estimated Creatinine Clearance 37.7 mL/min (>60); Free T4 (Free Thyroxine) 1.29 ng/dL (0.89-1.76); Globulin 2.3 gm/dL (2.3-3.5); Glucose 74 mg/dL (74-106); Magnesium 2.1 mg/dL (1.6-2.6); Osmolality,Calculated 287 (275-295); Phosphorous 3.3 mg/dL (2.4-5.1); Potassium 3.9 mMol/L (3.4-5.1); Sodium 143 mMol/L (136-145); Thyroid Stimulating Hormone 1.24 uIU/mL (0.55-4.78); Total Protein 5.5 gm/dL (5.7-8.2); eGFR 57 See Note
[2024-10-19] MEDS: ALBUTEROL/IPRATROPIUM (Duoneb) RT SOL 3 ML NEBU INH ×3 (07:02→22:30)
--- NOTE | 2024-10-19 08:46 | ESPR_ITS ---
Documentation for date of: 10/19/24 Subjective Subjective Interval history: No acute overnight events. Shortness of breath improving, satting well on 2 L NC. Complains of cough but denies fever, chills, headaches, chest pain, sob, GI or urinary symptoms. Exam Vital Signs Temp Pulse Resp BP Pulse Ox O2 Del Method O2 Flow Rate 97.6 F 65 22 H 146/53 H 99 Nasal Cannula 2 10/19/24 07:37 10/19/24 07:37 10/19/24 07:37 10/19/24 07:37 10/19/24 07:37 10/19/24 07:37 10/19/24 07:37 Narrative Exam GENERAL * Normal appearing female, NAD. HEENT * NCAT.?NAYANA. Oral mucosa is moist. Patent Nares NECK * Supple, nontender, no thyromegaly, no meningismus, no JVD, no step offs. CHEST * Regular rate and rhythm, mild systolic murmur, no G/R. ABDOMEN * Soft, flat, nontender. No guarding/rebound tenderness/masses. * Bowel sounds presents EXTREMITIES * Did not appreciate significant LE edema bialterally. SKIN * Warm and dry, no jaundice/rashes. NEUROMUSCULAR * No lumbar or midline, no CVA, no paraspinal muscle spasm or tenderness. * Moves all 4 extremities well, with full ROM and good CSM. * No focal neurologic deficits. PSYCHIATRY * Normal mood and affect, cooperative, no SI or HI or hallucinations. Objective Labs 10/20/24 05:02 10/20/24 05:02 Labs: Laboratory Results - last 24 hr 10/18/24 10/18/24 10/18/24 11:16 12:44 13:53 WBC 11.4 H RBC 4.32 Hgb 12.9 Hct 39.5 MCV 91 MCH 29.9 MCHC 32.7 RDW Std Deviation 50.3 H Plt Count 176 Neut % (Auto) 81 H Lymph % (Auto) 11 [place] % (Auto) 7 Eos % (Auto) 0 Baso % (Auto) 0 Neut # (Auto) 9.3 H Lymph # (Auto) 1.2 [place] # (Auto) 0.8 Eos # (Auto) 0.0 Baso # (Auto) 0.1 Immature Gran # (Auto) 0.05 H Absolute Nucleated RBC 0.00 Immature Gran % 0 Nucleated RBC % 0 PT INR APTT Sodium 143 Potassium 3.5 Chloride 106 Carbon Dioxide 27.3 Anion Gap 10 BUN 14 Creatinine 0.7 Estim Creat Clear Calc 53.9 L eGFR > 60 BUN/Creatinine Ratio [address] Glu mg/dL 85 Hemoglobin A1c 4.6 L Calculated Osmolality 285 Calcium 8.8 Corrected Calcium 8.9 Phosphorus Magnesium 2.2 Total Bilirubin 1.3 H AST 389 H ALT 303 H Alkaline Phosphatase 80 Troponin I 0.040 B-Natriuretic Peptide 1460 H* Total Protein 6.5 Albumin 3.9 Globulin 2.6 Albumin/Globulin Ratio 1.5 Triglycerides 98 Cholesterol 115 L LDL Cholesterol, Calc 52 HDL Cholesterol 43 Cholesterol/HDL Ratio 2.7 L TSH Free T4 Stool Occult Blood Positive A Hepatitis A IgM Ab Non Reactive Hep Bs Antigen Non Reactive Hep B Core IgM Ab Non Reactive Hepatitis C Antibody Non Reactive SARS-CoV-2 Ag (Rapid) 10/18/24 10/19/24 16:27 05:07 WBC 9.7 RBC 3.74 L Hgb 11.2 L Hct 34.8 L MCV 93 MCH 29.9 MCHC 32.2 RDW Std Deviation 51.8 H Plt Count 163 Neut % (Auto) 64 Lymph % (Auto) 26 [place] % (Auto) 9 Eos % (Auto) 0 Baso % (Auto) 1 Neut # (Auto) 6.2 Lymph # (Auto) 2.5 [place] # (Auto) 0.9 H Eos # (Auto) 0.0 Baso # (Auto) 0.1 Immature Gran # (Auto) 0.04 H Absolute Nucleated RBC 0.00 Immature Gran % 0 Nucleated RBC % 0 PT 11.7 INR 1.1 APTT 35.0 Sodium 143 Potassium 3.9 Chloride 106 Carbon Dioxide 29.1 Anion Gap 8 BUN 22 Creatinine 1.0 Estim Creat Clear Calc 37.7 L eGFR 57 L BUN/Creatinine Ratio [address] H Glucose [address] Glu mg/dL Hemoglobin A1c Calculated Osmolality 287 Calcium 8.3 Corrected Calcium 8.9 Phosphorus 3.3 Magnesium 2.1 Total Bilirubin 1.0 AST 393 H ALT 339 H Alkaline Phosphatase 63 D Troponin I B-Natriuretic Peptide Total Protein 5.5 L Albumin 3.2 L D Globulin 2.3 Albumin/Globulin Ratio 1.4 Triglycerides Cholesterol LDL Cholesterol, Calc HDL Cholesterol Cholesterol/HDL Ratio TSH 1.24 Free T4 1.29 Stool Occult Blood Hepatitis A IgM Ab Hep Bs Antigen Hep B Core IgM Ab Hepatitis C Antibody SARS-CoV-2 Ag (Rapid) Negative Quality Measures Quality Measures none Advance care planning discussed with:: patient Assessment & Plan Assessment Current Active Medications: Generic Name Dose Route Start Last Admin Trade Name Freq PRN Reason Stop Dose Admin Acetaminophen 650 mg 10/18/24 12:49 10/19/24 04:29 Acetaminophen 325 Mg Tablet PO 11/17/24 12:48 650 mg Q6H PRN Administration PAIN SCALE 1-3 (mild Albuterol/Ipratropium 3 ml 10/18/24 23:00 10/19/24 07:02 Albuterol/Ipratropium (Duoneb) Rt Kia 3 Ml Nebu INH 11/17/24 22:59 3 ml Q8HRRT MARLEN Administration Alprazolam 0.5 mg 10/18/24 21:00 10/18/24 21:03 Alprazolam 0.25 Mg Tablet PO 10/23/24 20:59 0.5 mg BID MARLEN Administration Amiodarone HCl 100 mg 10/18/24 15:15 10/18/24 16:06 Amiodarone Hcl 200 Mg Tablet PO 11/17/24 15:14 100 mg QDAY MARLEN Administration Atorvastatin Calcium 40 mg 10/18/24 15:15 10/18/24 16:06 Atorvastatin Calcium 20 Mg Tablet PO 11/17/24 15:14 40 mg DAILY MARLEN Administration Azithromycin 250 mg 10/19/24 09:00 Azithromycin 250 Mg Tablet PO 10/26/24 08:59 QDAY MARLEN Carvedilol 12.5 mg 10/18/24 17:30 10/18/24 17:40 Carvedilol 12.5 Mg Tablet PO 11/17/24 17:29 12.5 mg BIDWM MARLEN Administration Ferrous Sulfate 325 mg 10/18/24 15:15 10/18/24 16:03 Ferrous Sulf 325 Mg Tablet PO 11/17/24 15:14 325 mg Q48H MARLEN Administration Furosemide 40 mg 10/19/24 09:00 Furosemide Inj 10 Mg/Ml 4ml Vial IVP 11/18/24 08:59 QDAY MARLEN Guaifenesin 100 mg 10/19/24 08:40 Guaifenesin Syrup 200 Mg/10 Ml Udc PO 11/18/24 08:39 QID MARLEN Protocol Heparin Sodium (Porcine) 5,000 unit 10/18/24 14:00 10/19/24 05:31 Heparin Sod Inj 5000 Unit/Ml Vial SC 11/01/24 13:59 5,000 unit Q8HR MARLEN Administration Ceftriaxone Sodium/Dextrose 1 gm in 50 mls @ 100 mls/hr 10/18/24 13:45 10/18/24 16:15 Rocephin/D5w 1gm Iv Premix IV 10/25/24 13:44 Infused QDAY MARLEN Infusion Nitroglycerin 0.4 mg 10/18/24 15:04 Nitroglycerin 0.4 Mg Subl Btl #25 SL 11/17/24 15:03 Q5MIN PRN Chest Pain Ondansetron HCl 4 mg 10/18/24 12:49 10/18/24 13:02 Ondansetron Inj 2 Mg/Ml Inj 2 Ml IVP 11/17/24 12:48 4 mg Q6H PRN Administration NAUSEA OR VOMITING Protocol Pantoprazole Sodium 40 mg 10/19/24 09:00 Pantoprazole Inj 40 Mg Vial IVP 11/18/24 08:59 QDAY MARLEN Sertraline HCl 75 mg 10/19/24 09:00 Sertraline Hcl 25 Mg Tablet PO 11/18/24 08:59 QDAY MARLEN Valsartan 80 mg 10/19/24 09:00 Valsartan 80 Mg Tablet PO 11/18/24 08:59 QDAY MARLEN Plan This is a 79-year-old female with PMHx of HFpEF EEF 55%, CAD s/p stent 2006, A- fib on AMIODARONE, HTN, presented to the ED with 3 days of worsening SOB, likely in the setting of respiratory infection. Appreciate recommendations from cardiology team. HFpEF with acute exacerbation Acute hypoxic respiratory failure Possible upper respiratory infection CAD s/p stents 2006 Presenting with 3 days of worsening shortness of breath, required daily 4 L of oxygen, creased from her baseline. Limited day-to-day activity secondary to shortness of breath. Reports compliance with hemodialysis, no signs or symptoms of lower extremity edema, reported baseline urine output without signs of retention. Denies increased fluid intake. CHF exacerbation likely related to URI which started last week. Currently complaining of dark yellow sputum, has mild leukocytosis but no fever. ECHO in 01/2024 showed EF 55%, normal LV size with mild LVH, RV normal size and function, dilated left atrium, mild aortic stenosis, moderate aortic regurg, mild MAC with moderate mitral regurg, mild TR with normal PA pressures. She had a stent in 2006. LHC in 05/2022 showed 40% stenosis of proximal left circumflex artery; Widely patent stent involving left anterior descending artery. She has NITROGLYCERIN prescribed for chest pain, however currently not taking any. On exam she had possible JVD, bilateral lung crackles, but no lower extremity edema. BNP is elevated. CXR showed vascular congestion. CT abdominal pelvis showed small left pleural effusion and trace pericardial effusion. TG 98, cholesterol 115, LDL 52, HDL 43, TSH 1.24, free T4 1.29, A1c 4.6. COVID/influenza negative. Currently satting well on 2 L NC. Denies chest pain. 24H urine output 1.0 L, overall -830 net. SOB improving. Will continue with diuresis. No new cultures. ? Maintain K > 4.0 and Mg > 2.0 ? Strict GIANNA's ? Fluid restriction 1200 cc daily ? Monitor renal function ? Continue home CARVEDILOL 25 mg BID ? Will hold LASIX 40 mg IV BID settings of JACKLYN ? Continue CEFTRIAXONE (10/18 to present) and AZITHROMYCIN (10/18 to present) ? Pending repeat echocardiogram ? Pending influenza A/B, sputum, urine and blood cultures. ? Pending A1c, lipid panel, TSH, free T4 JACKLYN, prerenal azotemia CR 0.7 > 1.0, BUN 12 > 22 in settings of diuresis versus hydronephrosis as below. ? Will hold ACEi and diuresis in settings of JACKLYN Bilateral moderate hydronephrosis As seen on ultrasound. UA otherwise nonconcerning. Reports adequate urine output at home. CT abdomen showed 2 mm left renal stone, mild bilateral hydronephrosis, bilateral urinary tract infection and cystitis. ? Continue with CEFTRIAXONE as above ? Pending urine culture HTN HLD Aortic stenosis Hx A-fib Per record review, previously had hypertensive emergency with A-fib on EKG which resolved with CARVEDILOL, and continued on AMIODARONE which she currently is taking. EKG this time showed sinus rhythm with nonspecific ST changes. TG 98, cholesterol 115, LDL 52, HDL 43, TSH 1.24, free T4 1.29, A1c 4.6. ? Continue home AMIODARONE 200 mg q. day ? Continue home CARVEDILOL 25 mg BID ? Continue home ATORVASTATIN 40 mg daily ? HOLDING home VALSARTAN 80 mg daily Hx Iron deficiency anemia External hemorrhoid, with mild bleed External hemorrhoid noted on exam, with mild streaks of blood. GUAIAC test was positive. Although hemoglobin is within normal range. ? Continue home iron supplements ? Daily labs ? Transfuse if Hgb <8 Health maintenance Diet: Cardiac GI prophylaxis: PROTONIX DVT prophylaxis: HEPARIN subcu Antibiotics: CEFTRIAXONE, AZITHROMYCIN CODE STATUS: DNR Disposition: Admitted for CHF exacerbation, requiring IV DIURETICS, pending workup. Case was discussed with attending physician and senior resident. Harshal Mccormick DO PGYI This document was transcribed using voice recognition technology. Minor inaccuracies may be present. Attending Provider Attestation/Addendum Bradford, Alix Giron DO, attest that I was physically present for the gil portions of the service and evaluated the patient with the resident and I reviewed and discussed the case with the resident and agree with the resident's findings and plans of care as documented above Patient seen and evaluated this a.m. She states that she is feeling much better today. She remains on 2 L nasal cannula. Continue with IV antibiotics time and follow-up with final blood cultures. If patient is stable, anticipate discharge in a.m.Continue with Lasix IV once a day.
[2024-10-19] MEDS: AZITHROMYCIN 250 MG TABLET PO (08:48)
[2024-10-19] MEDS: POTASSIUM CHLORIDE 20 mEq TABCR 40 MEQ PO (08:49)
[2024-10-19] MEDS: carVEDILOL 12.5 MG TABLET PO ×2 (08:49→16:42)
[2024-10-19] MEDS: VALSARTAN 80 MG TABLET PO (08:49)
[2024-10-19] MEDS: ATORVASTATIN CALCIUM 20 MG TABLET 40 MG PO (08:49)
[2024-10-19] MEDS: AMIODARONE HCL 200 MG TABLET 100 MG PO (08:50)
[2024-10-19] MEDS: FUROSEMIDE INJ 10 MG/ML 4ML VIAL 40 MG IVP (08:52)
[2024-10-19] MEDS: PANTOPRAZOLE INJ 40 MG VIAL IVP (08:52)
[2024-10-19] MEDS: cefTRIAXone/D5w 1gm IV premix 1 GM/50 ML BAG IV (08:53)
--- NOTE | 2024-10-19 09:22 | PC.NURSE ---
Echo being performed at bedside.
--- NOTE | 2024-10-19 11:11 | ESPR_ITS ---
Documentation for date of: 10/19/24 Subjective Subjective Interval history: cc: worsening shortness of breath Patient is a 79-year-old female with a past medical history of CAD status post angioplasty and stent placement (2006), CHF HFpEF 55% (01/31/2024), Aortic fibrillation (Likely paroxysmal),aortic stenosis V-max 2.6, hyperlipidemia, and hypertension. Patient presented to the emergency room via EMS with a chief complaint of shortness of breath starting Friday and worsening today. Patient positive for orthopnea, typically sleeps upright. Denied paroxysmal nocturnal dyspnea likely secondary to home oxygen use only at night, 1.5 L. Dyspnea with exertion. Patient denied lower peripheral edema. Patient denied chest pain or chest pressure. Patient denied any recent sick contacts. Patient denied fevers or chills. Increased cough over the last 3 days, first noted on Friday. Patient overall has been feeling tired and has skipped her medications for the past 3 days. Patient continues to take carvedilol half a dose 25 mg likely half a dose, amiodarone 200, and Jardiance 10 mg daily. Home Lasix dose at 40 mg daily. Patient denied increase fluid intake. Patient denied increased salt intake. No Eliquis noted as part of home medication list. Patient admitted by primary team for acute on chronic chf exacerbation. Cardiology consulted for CHF exacerbation-this is a known patient of Dr. Kaye'naina. 10/19/2024: No overnight events reproted for patient. Patient pending echo. Patient denied chest pain and improved shortness of breath. Patient is currently saturting well on two liters of oxygen vi NC with spo2 of 98%. Lasix on hold by primary team. Holding Atorvastatin given worsening AST/ALT. Pending echo. BNP 170/1000/-830 Exam Vital Signs Temp Pulse Resp BP Pulse Ox O2 Del Method O2 Flow Rate 97.6 F 65 22 H 146/53 H 99 Nasal Cannula 2 10/19/24 07:37 10/19/24 08:52 10/19/24 07:37 10/19/24 08:52 10/19/24 07:37 10/19/24 07:37 10/19/24 07:37 Narrative Exam General Appearance: Alert & Oriented X3, thin female who is lying in bed in no acute distress HEENT: Skull symmetrical and atraumatic. Conjunctivae pale pink and moist. Pupils equal, round, reactive to light and accommodation (PERRL). Oral mucosa appears dry. Cardio: Normal Rate and Rhythm with S1 and S2 heart sounds. Holosystolic murmur noted over aortic and mitral region. No bruits on carotid auscultation. No peripheral edema or cyanosis. Lungs: Symmetric with good expansion. Chest and back non-tender. Breath sounds vesicular without crackles, wheezing or rhonchi Abdomen: Non-tender, Non-distended, Normal Reactive Bowel Sounds Neuro: Alert, cooperative, oriented to person, place, and time. Speech clear. CN grossly intact. Upper motor strength 5/5 and Lower motor strength 5/5. Sensation intact. Objective Labs 10/20/24 05:02 10/20/24 05:02 Labs: Laboratory Results - last 24 hr 10/18/24 10/18/24 10/18/24 11:16 12:44 13:53 WBC 11.4 H RBC 4.32 Hgb 12.9 Hct 39.5 MCV 91 MCH 29.9 MCHC 32.7 RDW Std Deviation 50.3 H Plt Count 176 Neut % (Auto) 81 H Lymph % (Auto) 11 [place] % (Auto) 7 Eos % (Auto) 0 Baso % (Auto) 0 Neut # (Auto) 9.3 H Lymph # (Auto) 1.2 [place] # (Auto) 0.8 Eos # (Auto) 0.0 Baso # (Auto) 0.1 Immature Gran # (Auto) 0.05 H Absolute Nucleated RBC 0.00 Immature Gran % 0 Nucleated RBC % 0 PT INR APTT Sodium 143 Potassium 3.5 Chloride 106 Carbon Dioxide 27.3 Anion Gap 10 BUN 14 Creatinine 0.7 Estim Creat Clear Calc 53.9 L eGFR > 60 BUN/Creatinine Ratio [address] Glu mg/dL 85 Hemoglobin A1c 4.6 L Calculated Osmolality 285 Calcium 8.8 Corrected Calcium 8.9 Phosphorus Magnesium 2.2 Total Bilirubin 1.3 H AST 389 H ALT 303 H Alkaline Phosphatase 80 Troponin I 0.040 B-Natriuretic Peptide 1460 H* Total Protein 6.5 Albumin 3.9 Globulin 2.6 Albumin/Globulin Ratio 1.5 Triglycerides 98 Cholesterol 115 L LDL Cholesterol, Calc 52 HDL Cholesterol 43 Cholesterol/HDL Ratio 2.7 L TSH Free T4 Stool Occult Blood Positive A Hepatitis A IgM Ab Non Reactive Hep Bs Antigen Non Reactive Hep B Core IgM Ab Non Reactive Hepatitis C Antibody Non Reactive SARS-CoV-2 Ag (Rapid) 10/18/24 10/19/24 16:27 05:07 WBC 9.7 RBC 3.74 L Hgb 11.2 L Hct 34.8 L MCV 93 MCH 29.9 MCHC 32.2 RDW Std Deviation 51.8 H Plt Count 163 Neut % (Auto) 64 Lymph % (Auto) 26 [place] % (Auto) 9 Eos % (Auto) 0 Baso % (Auto) 1 Neut # (Auto) 6.2 Lymph # (Auto) 2.5 [place] # (Auto) 0.9 H Eos # (Auto) 0.0 Baso # (Auto) 0.1 Immature Gran # (Auto) 0.04 H Absolute Nucleated RBC 0.00 Immature Gran % 0 Nucleated RBC % 0 PT 11.7 INR 1.1 APTT 35.0 Sodium 143 Potassium 3.9 Chloride 106 Carbon Dioxide 29.1 Anion Gap 8 BUN 22 Creatinine 1.0 Estim Creat Clear Calc 37.7 L eGFR 57 L BUN/Creatinine Ratio [address] H Glucose [address] Glu mg/dL Hemoglobin A1c Calculated Osmolality 287 Calcium 8.3 Corrected Calcium 8.9 Phosphorus 3.3 Magnesium 2.1 Total Bilirubin 1.0 AST 393 H ALT 339 H Alkaline Phosphatase 63 D Troponin I B-Natriuretic Peptide Total Protein 5.5 L Albumin 3.2 L D Globulin 2.3 Albumin/Globulin Ratio 1.4 Triglycerides Cholesterol LDL Cholesterol, Calc HDL Cholesterol Cholesterol/HDL Ratio TSH 1.24 Free T4 1.29 Stool Occult Blood Hepatitis A IgM Ab Hep Bs Antigen Hep B Core IgM Ab Hepatitis C Antibody SARS-CoV-2 Ag (Rapid) Negative Quality Measures Quality Measures none Advance care planning discussed with:: patient Assessment & Plan Assessment Current Active Medications: Generic Name Dose Route Start Last Admin Trade Name Freq PRN Reason Stop Dose Admin Acetaminophen 650 mg 10/18/24 12:49 10/19/24 04:29 Acetaminophen 325 Mg Tablet PO 11/17/24 12:48 650 mg Q6H PRN Administration PAIN SCALE 1-3 (mild Albuterol/Ipratropium 3 ml 10/18/24 23:00 10/19/24 07:02 Albuterol/Ipratropium (Duoneb) Rt Kia 3 Ml Nebu INH 11/17/24 22:59 3 ml Q8HRRT MARLEN Administration Alprazolam 0.5 mg 10/18/24 21:00 10/18/24 21:03 Alprazolam 0.25 Mg Tablet PO 10/23/24 20:59 0.5 mg BID MARLEN Administration Amiodarone HCl 100 mg 10/18/24 15:15 10/19/24 08:50 Amiodarone Hcl 200 Mg Tablet PO 11/17/24 15:14 100 mg QDAY MARLNE Administration Atorvastatin Calcium 40 mg 10/18/24 15:15 10/19/24 08:49 Atorvastatin Calcium 20 Mg Tablet PO 11/17/24 15:14 40 mg DAILY MARLEN Administration Azithromycin 250 mg 10/19/24 09:00 10/19/24 08:48 Azithromycin 250 Mg Tablet PO 10/26/24 08:59 250 mg QDAY MARLEN Administration Carvedilol 12.5 mg 10/18/24 17:30 10/19/24 08:49 Carvedilol 12.5 Mg Tablet PO 11/17/24 17:29 12.5 mg BIDWM MARLEN Administration Ferrous Sulfate 325 mg 10/18/24 15:15 10/18/24 16:03 Ferrous Sulf 325 Mg Tablet PO 11/17/24 15:14 325 mg Q48H MARLEN Administration Furosemide 40 mg 10/19/24 09:00 10/19/24 08:52 Furosemide Inj 10 Mg/Ml 4ml Vial IVP 11/18/24 08:59 40 mg QDAY MARLEN Administration Guaifenesin 100 mg 10/19/24 08:40 10/19/24 09:20 Guaifenesin Syrup 200 Mg/10 Ml Udc PO 11/18/24 08:39 100 mg QID MARLEN Administration Protocol Heparin Sodium (Porcine) 5,000 unit 10/18/24 14:00 10/19/24 05:31 Heparin Sod Inj 5000 Unit/Ml Vial SC 11/01/24 13:59 5,000 unit Q8HR MARLEN Administration Ceftriaxone Sodium/Dextrose 1 gm in 50 mls @ 100 mls/hr 10/18/24 13:45 10/19/24 08:53 Rocephin/D5w 1gm Iv Premix IV 10/25/24 13:44 100 mls/hr QDAY MARLEN Administration Nitroglycerin 0.4 mg 10/18/24 15:04 Nitroglycerin 0.4 Mg Subl Btl #25 SL 11/17/24 15:03 Q5MIN PRN Chest Pain Ondansetron HCl 4 mg 10/18/24 12:49 10/18/24 13:02 Ondansetron Inj 2 Mg/Ml Inj 2 Ml IVP 11/17/24 12:48 4 mg Q6H PRN Administration NAUSEA OR VOMITING Protocol Pantoprazole Sodium 40 mg 10/19/24 09:00 10/19/24 08:52 Pantoprazole Inj 40 Mg Vial IVP 11/18/24 08:59 40 mg QDAY MARLEN Administration Sertraline HCl 75 mg 10/19/24 09:00 Sertraline Hcl 25 Mg Tablet PO 11/18/24 08:59 QDAY MARLEN Valsartan 80 mg 10/19/24 09:00 10/19/24 08:49 Valsartan 80 Mg Tablet PO 11/18/24 08:59 80 mg QDAY MARLEN Administration Plan Patient is a 79-year-old female with a past medical history of CAD status post angioplasty and stent placement (2006), CHF HFpEF 55% (01/31/2024), Aortic fibrillation (Likely paroxysmal),aortic stenosis V-max 2.6, hyperlipidemia, and hypertension. Patient was admitte for CHF exacerbation and acute hypoxic respiratory failure required increased NC. #Acute hypoxic respiratory failure #Acute on Chronic Congestive Heart Failure #CHF HFpEF 55% (01/31/2024) # Moderate aortic stenosis Patient has a past medical history of congestive heart failure, patient is unsure what triggered event, but since Friday morning patient has had increased fatigue and weakness. Given mild elevation in AST's and ALT's consider hepatal cardio versus infectious pulmonary cause such as upper respiratory tract infection versus diet noncompliance. Worsening symptoms less likely secondary to an IA as troponins are unremarkable at 0.04 and denied chest pain versus pneumonia. Flu negative Diagnostics Echo 10/20/2024: Normal LV size and function. Estimated EF 55-60% Stage 1 diastolic dysfunction. Normal RV size and function. RVSP 26mmHg. RAP 10mmHg. Moderate MAC. Moderate MR. Trace to mild TR. Moderate and AV moderate to severely calcified. Moderate AI. No Pericardial effusion. Chest x-ray early heart failure with prominent vascular congestion Troponin 0.04 BMP 1460 TSH 1.24 Free T4 1.29 10/19/2024: Ins and Outs 170/1000/-830 NYHA: III ASCVD: moderate statins bc of knonw CAD, hold off given AST/ALTs Plan -Lasix 40 twice daily, reduced to Lasix 40 mg Qday, now currently on HOLD by primary team - Aggressive diuresis - Continue carvedilol consider starting at 12.5 mg twice daily - Potassium greater than 4 and magnesium greater than 2 -Echo -Fluid restriction (1500) and in and outs; limits salt intake 2 grams -head of the bed elevated -Daily weight check s -Work toward guideline directed medical treatment, hold off on Jardiance and reevaluate #History Paroxysmal atrial fibrillation Patient has a past medical history of atrial fibrillation, medication includes amiodarone 200 mg p.o. a daily and carvedilol. Consider resuming amiodarone at same dose as patient appears in sinus rhythm. [id number] 4 HAS BLED: 2 points Plan -NO Eliquis as part of home medication given paroxysmal and currently sinus. - Potassium greater than 4 and magnesium greater than 2 -case monitor -Carvedilol and amiodarone resumed #CAD status post angioplasty and stent (2006) #Hyperlipidemia Patient has past medical history of hyperlipidemia on statin placement Plan -Hold off on all atorvastatin 40 mg p.o. at bedtime given mild transaminitis - No aspirin listed, consider resuming if low specific suspicion for GI bleed #JACKLYN JACKLYN likely pre-renal given BUN/Cr change. Consider urine lytes. Per records, poor oral intake, only 170 cc which Lasix may have contributed. Continue Lasix and encourage oral intake within limits. Plan -Avoid nephrotoxins -renally dose medication -encourage oral hydration within fluid restrictions. #Hypertensive emergency, improved #History of hypertension Resume home medication of carvedilol consider starting at 12.5 mg twice daily as patient stated she struggles with hypotension. Valsartan 80 mg daily as a home medication. Plan - Continue to monitor patient's blood pressure -Resume carvedilol at a lower dose 12.5 mg twice daily versus 25 mg twice daily - HOLD given mild JACKLYN valsartan 80 mg daily #Luekocytosis #Possible, CAP #Cough Concern possible URI vs CAP vs reactive leukocytosis with chieft complains of productive cough and fatigue. Flu negative. 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 Mild transaminitis likely secondary medication induced as patient is on atorvastatin versus hepatal cardiorenal syndrome versus hepatitis versus less likely secondary to choledocholithiasis as patient has past medical history of cholecystectomy versus CHAVIS Diagnostics CT abdomen pelvis: Common bile duct 10 mm, no common bile duct stones no pancreatic masses. Diagnostics Abdomen ultrasound common bile duct 0.7 mm no stone, liver 11.7 fatty infiltration some lobular contour mild ascites, normal hepatic portal venous flow. Abdomen/Pelvis-2 mm left renal calculus. Mild to bilateal hydronephrosis. AST 389 and ALT 303, Total Bilirubin 1.3-->(10/19/2024): Total Bili 1.0, AST 393 ALT 339 Plan -HOLD Atorvastatin, given worsening AST ALTs -Amiodrone known to cause liver injury as well - Continue to monitor AST's and ALT's - Consider hepatitis panel-->Negative - Outpatient follow-up with GI specialist #Essential finding of bilateral hydronephrosis #Leuocytosis #2 mm left renal calculi On admission patient denied any abdominal tenderness or urinary symptoms. No UA on file. Plan -Continue to monitor urine output although stone is small -Continue to monitor for signs infection given leukocytosis -UA culture pending #History of Esophageal Ulcers #Erosive Gastritis w/ hemorrhage Past medical history of esophageal ulcers and erosive gastritis w/ hemorrhage s/p EGD (01/31/2024. Likely underlying cause of occult stool positive vs iron plan -Resume Protonix -Recommended for outpatient colonoscopy, unsure if patient followed up #Hx of MIcrocytic Anemia #Occult Blood Positive Denied stefany blood, no anemia noted during this admission. Past medical histoyr of Microcytic Anemia, started on iron tables. Health Maintenance: Disp: Pt is currently admitted to floors for further management of admitted for CHF exacerbation, cardiology following. FEN: cardiac DVT: on subQ heparin Code: DNR - The patient's plan was discussed with attending Dr. Sherrie Juarez MD PGY1 Internal Medicine Attending Provider Attestation/Addendum I have personally seen and examined the patient separately on the above date of service and discussed the plan of care with the resident. I reviewed the resident Dr. Kim Juarez consultation progress note and agree with the resident findings and plan in the note above and have also edited the documentation to reflect my findings and plan. Bharat Balderas M.D. Interventional Cardiology
--- NOTE | 2024-10-19 11:40 | PC.SS ---
Initial assessment: patient is a 79-year old female admitted for CHF exacerbation. Patient confirmed demographic information. Informs she lives with a roommate, currently renting a room. Patient informs she has a walker at home and utilizes home oxygen at night on 2L. Patient informs her PCP is Tha Swift. Patient informs her pharmacy is [facility] in [place]. Patient informs she is also followed by Dr. Contreras. Patient would like to return home upon discharge. Patient confirms her son, Wander Lopez should be contacted in case of an emergency. Patient denies any current needs at this time. D/c plan: home Next of kin: SonWander [phone]
--- NOTE | 2024-10-19 12:51 | ECHO_ITS ---
Transthoracic Echo Report Ht (in): 63 Wt (lb): 132 Exam Location: Echo Lab Status: Inpatient Paving And Surfacing Labourer: Marielena Shore Indications: Procedure Performed: BP: 146 / 53 HR: 73 Technical Quality: Adequate MEASUREMENTS (Male / Female) Normal Values 2D ECHO LVOT Diameter 1.8 cm DOPPLER AV Peak Velocity 325.0 cm/s AV Peak Gradient 42.3 mmHg AV Mean Gradient 25.0 mmHg AV Velocity Time Integral 77.7 cm AI Peak Velocity 351.0 cm/s AI Peak Gradient 49.3 mmHg AI Pressure Half Time 307.0 ms LVOT Peak Velocity 100.9 cm/s LVOT Peak Gradient 4.1 mmHg LVOT Velocity Time Integral 29.5 cm LVOT Cardiac Index 3344.1 cm?/min?m? AV Area Cont Eq vti 1.0 cm? AV Area Cont Eq pk 0.8 cm? MV Peak Velocity 138.0 cm/s MV Peak Gradient 7.6 mmHg MV Mean Velocity 76.1 cm/s MV Mean Gradient 3.0 mmHg MV Area PHT 3.4 cm? MR Peak Velocity 552.0 cm/s MR Peak Gradient 121.9 mmHg MR ERO PISA 0.4 cm? TR Peak Velocity 255.0 cm/s TR Peak Gradient 26.0 mmHg PV Peak Velocity 81.4 cm/s PV Peak Gradient 2.7 mmHg FINDINGS Left Ventricle Normal left ventricular size, wall thickness, systolic function with no obvious regional wall motion abnormalities. Normal left ventricular diastolic filling pattern for age. The ejection fraction is visually estimated at __ %. Right Ventricle The right ventricle is normal in size and systolic function. The estimated right ventricular systolic pressure, 26 mmHg. RAP 10mmHg. Left Atrium The left atrium is severely enlarged. Right Atrium The right atrium is moderately enlarged. Atrial Septum The interatrial septum appears normal with no evidence of a shunt. Aorta The aorta is normal by two-dimensional, color flow and Doppler interrogation. Mitral Valve The mitral valve annulus is moderately calcified. . There is moderate to severe mitral regurgitation. Aortic Valve The aortic valve is trileaflet and moderately calcified with moderate aortic stenosis. Aortic valve vmax of 3.25m/s and MPG of 25mmHg. There is moderate aortic regurgitation. Tricuspid Valve The tricuspid valve is normal by two-dimensional, color flow and Doppler interrogation. There is trace tricuspid regurgitation. Pulmonic Valve The pulmonic valve is not well visualized. There is no significant pulmonic valve regurgitation. Vessels The pulmonary artery appears normal. The inferior vena cava pulmonary and hepatic veins appear normal. Pericardium The pericardium is normal by two-dimensional imaging. There is no significant pericardial effusion. CONCLUSIONS Indications: CHF Normal LV size and function. Estimated EF 55-60% Stage 1 diastolic dysfunction. Normal RV size and function. RVSP 26mmHg. RAP 10mmHg. Moderate MAC. Moderate MR. Trace to mild TR. Moderate and AV moderate to severely calcified. Moderate AI. No Pericardial effusion. Bharat Balderas (Electronically Signed) Final Date: 20 October 2024 13:26
--- NOTE | 2024-10-19 15:27 | PC.SS ---
Rounding note: patient is pending cultures, being treated for pneumonia.
--- NOTE | 2024-10-19 17:05 | PC.PT ---
Patient is safe to ambulate to the bathroom and in her room with O2, a FWW, and 1 staff assist for safety. RN made aware.
[2024-10-20] VITALS (8 sets, daily range): BP systolic 140–162; BP diastolic 58–79; PULSE 68–95; RESP 12–16; TEMP 36.1–36.5; O2SAT 92–100; BMI 23.5
[2024-10-20] MEDS: guaiFENesin SYRUP 200 MG/10 ML UDC 100 MG PO (05:12)
[2024-10-20] MEDS: HEPARIN SOD INJ 5000 UNIT/ML VIAL SC (05:12)
[2024-10-20 05:46] LABS: Basophils % (Auto) 0 % (0-2.5); Eosinophils # (Auto) 0.1 Thou/mm3 (0.0-0.5); Eosinophils % (Auto) 2 % (0-10); Hematocrit 33.3 % (36.0-46.0); Hemoglobin 11.2 g/dL (12.0-16.0); Immature Granulocytes % (Auto) 0 % (0-0); Immature Granulocytes Auto 0.03 Thou/mm3 (0.00-0.00); Lymphocytes # (Auto) 2.7 Thou/mm3 (1.0-4.8); Lymphocytes % (Auto) 28 % (10-50); Mean Corpuscular HGB Conc 33.6 g/dl (31.0-37.0); Mean Corpuscular Hemoglobin 30.5 pg (25.0-35.0); Mean Corpuscular Volume 91 fL (80-100); Monocytes # (Auto) 0.8 Thou/mm3 (0.0-0.8); Monocytes % (Auto) 8 % (0-12); Neutrophils # (Auto) 5.9 Thou/mm3 (1.8-7.7); Neutrophils % (Auto) 61 % (37-80); Nucleated Red Blood Cell % 0 /100 WBC (0); Platelet Count 185 Thou/mm3 (140-440); RDW Standard Deviation 50.3 fL (36.4-46.3); Red Blood Count 3.67 Miln/mm3 (4.00-5.20); White Blood Count 9.6 Thou/mm3 (3.6-11.0)
[2024-10-20 06:24] LABS: Alanine Aminotransferase 249 U/L (10-49); Albumin, Serum 3.1 gm/dL (3.4-4.8); Albumin/Globulin Ratio 1.3 (1.2-2.2); Alkaline Phosphatase 68 U/L (46-116); Anion Gap 5 (7-16); Aspartate Amino Transferase 205 U/L (0-34); BUN/Creatinine Ratio 29 Ratio (12-20); Bilirubin,Total 0.8 mg/dL (0.3-1.2); Blood Urea Nitrogen 23 mg/dL (9-23); Calcium 8.5 mg/dL (8.3-10.6); Calcium (Corrected) 9.2 mg/dL (8.5-10.1); Carbon Dioxide 29.3 mMol/L (20.0-31.0); Chloride 107 mMol/L (98-107); Creatinine (Component) 0.8 mg/dL (0.6-1.3); Estimated Creatinine Clearance 47.2 mL/min (>60); Globulin 2.4 gm/dL (2.3-3.5); Glucose 81 mg/dL (74-106); Magnesium 2.1 mg/dL (1.6-2.6); Osmolality,Calculated 283 (275-295); Phosphorous 2.6 mg/dL (2.4-5.1); Potassium 4.1 mMol/L (3.4-5.1); Sodium 141 mMol/L (136-145); Total Protein 5.5 gm/dL (5.7-8.2); eGFR > 60 See Note
[2024-10-20] MEDS: ALBUTEROL/IPRATROPIUM (Duoneb) RT SOL 3 ML NEBU INH (06:26)
[2024-10-20] MEDS: PANTOPRAZOLE INJ 40 MG VIAL IVP (08:56)
[2024-10-20] MEDS: cefTRIAXone/D5w 1gm IV premix 1 GM/50 ML BAG IV (08:56)
[2024-10-20] MEDS: ALPRazoLAM 0.25 MG TABLET 0.5 MG PO (08:56)
[2024-10-20] MEDS: carVEDILOL 12.5 MG TABLET PO (08:56)
[2024-10-20] MEDS: SERTRALINE HCL 25 MG TABLET 75 MG PO (08:56)
[2024-10-20] MEDS: AZITHROMYCIN 250 MG TABLET PO (08:56)
[2024-10-20] MEDS: AMIODARONE HCL 200 MG TABLET 100 MG PO (08:57)
--- NOTE | 2024-10-20 12:40 | PC.SS ---
Follow up note: Patient has d/c orders for today. PT worked with patient and recommended HH. Patient has transportation home.
--- NOTE | 2024-10-20 13:58 | ESDS_ITS ---
<Statement entered by Alix Giron DO - 10/21/24 07:31> I, Alix Giron DO, attest that I was physically present for the gil portions of the service and evaluated the patient with the resident and I reviewed and discussed the case with the resident and agree with the resident's findings and plans of care as documented above <Statement entered by Harsha Lima MD - 10/21/24 07:10> I discussed with and supervised the engineer internship physician involved in the care of this patient. Patient assessment and plan was discussed with entire medicine team, including my attending. I agree with the assessment and plan as documented by engineer internship doctor. Patient care was discussed with my attending physician Dr. Mack Lima, PGY-2 Planned Discharge Date 10/20/24 DS: Providers Provider Date of admission: 10/18/24 12:49 Primary care physician: Tha Swift MD Admitting Provider: Alix Giron DO Attending Provider on Admission: Alix Giron DO Consults: 10/18/24 13:29 Consult to Cardiology Routine Comment: CHF exacerbation, dyspnea, elevated BNP Consulting Provider: Bharat Balderas 10/19/24 10:06 Referral Physical Therapy Routine Comment: Physician Instructions: Attending Provider on DC: Alix Giron DO Discharging Provider: Alix Giron DO DS: Diagnosis Problem List Completed Was Problem List Reviewed/Reconciled?: Yes Hospital Course Hospital Course Hospital course: This is a 79-year-old female with PMHx of HFpEF EEF 55%, CAD s/p stent 2006, A- fib on AMIODARONE, HTN, presented to the ED with 3 days of worsening SOB. He was diuresed and continued on CEFTRIAXONE for pneumonia seen on x-ray, patient was also symptomatic with cough. Her symptoms have improved with management. Cultures showed no growth she was stable and at baseline on discharge. Vitals and labs were reviewed and without significant derangement from baseline. In the interim she had a mild JACKLYN in setting of diuresis which returned to baseline after decreasing diuresis. IMAGE FINDINGS: * CXR showed early heart failure. * EKG shows sinus rhythm with nonspecific T wave abnormalities. * Abdominal ultrasound showed cirrhosis, mild ascites, no focal liver lesion, moderate bilateral hydronephrosis. * Abdominal pelvis showed 2 mm left renal calculus, suggestive bilateral UTI. * Echocardiogram showed EF 55-60%, stage I diastolic dysfunction, normal LV/RV size/function, moderate MAC, moderate MR, trace to mild TR, moderate , and AV with moderate to severe calcification, moderate AI, no pericardial ef fusion. PATIENT INSTRUCTIONS: * Please see your primary care physician within 1-2 weeks of discharge. * Follow up with your manager highway within 1-2 weeks of discharge. * If symptoms worsen, please go to your nearest hospital / ED. * Please complete the 2 antibiotics as prescribed. * Continue taking your medications as prescribed below. ADMISSION DIAGNOSES: Acute hypoxic respiratory failure HFpEF with acute exacerbation Possible upper respiratory infection CAD s/p stents 2006 JACKLYN, prerenal azotemia Bilateral moderate hydronephrosis HTN HLD Aortic stenosis Hx A-fib Hx Iron deficiency anemia External hemorrhoid, with mild bleed Case was discussed with attending physician and senior resident. Harshal Mccormick DO PGYI Time Spent with Patient Time attestation: Total time spent providing and/or coordinating discharge services: Time spent: Greater than 30 minutes Exam Vital Signs Temp Pulse Resp BP Pulse Ox O2 Del Method O2 Flow Rate 97.0 F 95 16 140/61 H 95 Room Air 2 10/20/24 12:00 10/20/24 12:10/20/24 12:10/20/24 12:10/20/24 12:10/20/24 12:10/20/24 06:30 Narrative Exam GENERAL * Normal appearing female, NAD. HEENT * NCAT.?NAYANA. Oral mucosa is moist. Patent Nares NECK * Supple, nontender, no thyromegaly, no meningismus, no JVD, no step offs. CHEST * Regular rate and rhythm, mild systolic murmur, no G/R. ABDOMEN * Soft, flat, nontender. No guarding/rebound tenderness/masses. * Bowel sounds presents EXTREMITIES * Did not appreciate significant LE edema bialterally. SKIN * Warm and dry, no jaundice/rashes. NEUROMUSCULAR * No lumbar or midline, no CVA, no paraspinal muscle spasm or tenderness. * Moves all 4 extremities well, with full ROM and good CSM. * No focal neurologic deficits. PSYCHIATRY * Normal mood and affect, cooperative, no SI or HI or hallucinations. Discharge Plan Plan Patient Disposition: HOME (Self Care) Patient condition on transfer: Stable Care Plan Goals: Please see your primary care physician within 1-2 weeks of discharge. Follow up with your manager highway within 1-2 weeks of discharge. If symptoms worsen, please go to your nearest hospital / ED. Please complete the 2 antibiotics as prescribed. Continue taking your medications as prescribed below. Prescriptions/Referrals Prescriptions/Med Rec: New doxycycline hyclate 100 mg capsule 100 mg PO BID Qty: 12 0RF cefuroxime axetil 500 mg tablet 500 mg PO BID Qty: 12 0RF Continued atorvastatin [Lipitor] 40 MG tablet 40 mg PO QMORNING Qty: 0 carvedilol [Coreg] 25 MG tablet 25 mg PO BID Qty: 0 Rx Instructions: take with food furosemide 40 mg Tablet 40 mg PO QDAY potassium chloride [Klor-Con 10] 10 mEq Tablet Extended Release 10 meq PO QDAY Rx Instructions: Take 1 tablet by mouth every day with food for 90 days alprazolam [Xanax] 0.5 mg Tablet 0.5 mg PO BID nitroglycerin [Nitrostat] 0.4 mg Tablet, Sublingual 0.4 mg BUCCAL Q5MIN MDD 3 PRN (Reason: Chest Pain) sertraline [Zoloft] 50 mg Tablet 75 mg PO QDAY pantoprazole 40 mg tablet,delayed release (DR/EC) 40 mg PO BID Qty: 60 0RF Jardiance 10 mg tablet 10 mg PO QDAY Qty: 30 2RF ferrous sulfate 325 mg (65 mg iron) tablet 325 mg PO Q OTHER DAY Qty: 30 2RF amiodarone 200 mg tablet 200 mg PO QDAY valsartan 80 mg tablet 80 mg PO QDAY fluticasone propionate 50 mcg/actuation spray,suspension 2 spray INTRANASAL QDAY PRN (Reason: allergy symptoms) Discontinued valsartan [Diovan] 160 mg Tablet 160 mg PO BID amiodarone 100 mg Tablet 100 mg PO QDAY Referrals: Tha Swift MD [Primary Care Provider] - Patient/Caregiver Discharge Instructions Education Materials: Heart Failure Print Language: Nepali Stand Alone Forms: Maeve Award Info., Patient Portal Info Letter Discharge Order Discharge Orders: Discharge (Routine); Ordered 10/20/24 Ordered By: Harsha Lima Quality Discharge Quality Measures VTE prophylaxis
--- NOTE | 2024-10-20 15:00 | PD.RESPRO ---
Documentation for date of: 10/20/24 Subjective Subjective Interval history: cc: worsening shortness of breath Patient is a 79-year-old female with a past medical history of CAD status post angioplasty and stent placement (2006), CHF HFpEF 55% (01/31/2024), Aortic fibrillation (Likely paroxysmal),aortic stenosis V-max 2.6, hyperlipidemia, and hypertension. Patient presented to the emergency room via EMS with a chief complaint of shortness of breath starting Friday and worsening today. Patient positive for orthopnea, typically sleeps upright. Denied paroxysmal nocturnal dyspnea likely secondary to home oxygen use only at night, 1.5 L. Dyspnea with exertion. Patient denied lower peripheral edema. Patient denied chest pain or chest pressure. Patient denied any recent sick contacts. Patient denied fevers or chills. Increased cough over the last 3 days, first noted on Friday. Patient overall has been feeling tired and has skipped her medications for the past 3 days. Patient continues to take carvedilol half a dose 25 mg likely half a dose, amiodarone 200, and Jardiance 10 mg daily. Home Lasix dose at 40 mg daily. Patient denied increase fluid intake. Patient denied increased salt intake. No Eliquis noted as part of home medication list. Patient admitted by primary team for acute on chronic chf exacerbation. Cardiology consulted for CHF exacerbation-this is a known patient of Dr. Kaye's. 10/19/2024: No overnight events reproted for patient. Patient pending echo. Patient denied chest pain and improved shortness of breath. Patient is currently saturting well on two liters of oxygen vi NC with spo2 of 98%. Lasix on hold by primary team. Holding Atorvastatin given worsening AST/ALT. Pending echo. BNP 170/1000/-830 .10/20/2024: Patient examinded at bedside. Patient denied chest pain or shortness of breath. Patient denied cardiac chest pain or palpitations. Echo (10/19/2024) Stage I diastolic dyfunction, EF 55-60%. RVSP 26 mmHg. RAP 10mmHg. Modersate and AV moderate to severely calcified. Continue to take medication as prescribed. Patient is being discharged on antibiotics. Exam Vital Signs Temp Pulse Resp BP Pulse Ox O2 Del Method O2 Flow Rate 97.0 F 95 16 140/61 H 95 Room Air 2 10/20/24 12:00 10/20/24 12:10/20/24 12:10/20/24 12:10/20/24 12:10/20/24 12:00 10/20/24 06:30 Narrative Exam General Appearance: Alert & Oriented X3, thin female who is lying in bed in no acute distress HEENT: Skull symmetrical and atraumatic. Conjunctivae pale pink and moist. Pupils equal, round, reactive to light and accommodation (PERRL). Oral mucosa appears dry. Cardio: Normal Rate and Rhythm with S1 and S2 heart sounds. Holosystolic murmur noted over aortic and mitral region. No bruits on carotid auscultation. No peripheral edema or cyanosis. Lungs: Symmetric with good expansion. Chest and back non-tender. Breath sounds vesicular without crackles, wheezing or rhonchi Abdomen: Non-tender, Non-distended, Normal Reactive Bowel Sounds Neuro: Alert, cooperative, oriented to person, place, and time. Speech clear. CN grossly intact. Upper motor strength 5/5 and Lower motor strength 5/5. Sensation intact. Objective Labs 10/20/24 05:02 10/20/24 05:02 Labs: Laboratory Results - last 24 hr 10/20/24 05:02 WBC 9.6 RBC 3.67 L Hgb 11.2 L Hct 33.3 L MCV 91 MCH 30.5 MCHC 33.6 RDW Std Deviation 50.3 H Plt Count 185 Neut % (Auto) 61 Lymph % (Auto) 28 [place] % (Auto) 8 Eos % (Auto) 2 Baso % (Auto) 0 Neut # (Auto) 5.9 Lymph # (Auto) 2.7 [place] # (Auto) 0.8 Eos # (Auto) 0.1 Baso # (Auto) 0.0 Immature Gran # (Auto) 0.03 H Absolute Nucleated RBC 0.00 Immature Gran % 0 Nucleated RBC % 0 Sodium 141 Potassium 4.1 Chloride 107 Carbon Dioxide 29.3 Anion Gap 5 L BUN 23 Creatinine 0.8 Estim Creat Clear Calc 47.2 L eGFR > 60 BUN/Creatinine Ratio 29 H Glucose 81 Calculated Osmolality 283 Calcium 8.5 Corrected Calcium 9.2 Phosphorus 2.6 Magnesium 2.1 Total Bilirubin 0.8 AST 205 H ALT 249 H Alkaline Phosphatase 68 Total Protein 5.5 L Albumin 3.1 L Globulin 2.4 Albumin/Globulin Ratio 1.3 Quality Measures Quality Measures VTE prophylaxis Advance care planning discussed with:: patient Assessment & Plan Plan Patient is a 79-year-old female with a past medical history of CAD status post angioplasty and stent placement (2006), CHF HFpEF 55% (01/31/2024), Aortic fibrillation (Likely paroxysmal),aortic stenosis V-max 2.6, hyperlipidemia, and hypertension. Patient was admitte for CHF exacerbation and acute hypoxic respiratory failure required increased NC. #Acute hypoxic respiratory failure #Acute on Chronic Congestive Heart Failure #CHF HFpEF 55% (01/31/2024) # Moderate aortic stenosis Patient has a past medical history of congestive heart failure, patient is unsure what triggered event, but since Friday morning patient has had increased fatigue and weakness. Given mild elevation in AST's and ALT's consider hepatal cardio versus infectious pulmonary cause such as upper respiratory tract infection versus diet noncompliance. Worsening symptoms less likely secondary to an GA as troponins are unremarkable at 0.04 and denied chest pain versus pneumonia. Flu negative Diagnostics Echo 10/19/2024: Normal LV size and function. Estimated EF 55-60% Stage 1 diastolic dysfunction. Normal RV size and function. RVSP 26mmHg. RAP 10mmHg. Moderate MAC. Moderate MR. Trace to mild TR.Moderate and AV moderate to severely calcified. Moderate AI. No Pericardial effusion. Chest x-ray early heart failure with prominent vascular congestion Troponin 0.04 BMP 1460 TSH 1.24 Free T4 1.29 In and Outs: 550/1150/-600 Total for this admission: -1300 Dry weigth 59.891 NYHA: III ASCVD: moderate statins bc of [facility] CAD, hold off given AST/ALTs Plan -Resume home medication of oral Lasix 40 mg PO upon discharge. - Continue carvedilol consider starting at 12.5 mg twice daily -Fluid restriction (1500) and in and outs; limits salt intake 2 grams -head of the bed elevated -Daily weight check s -Work toward guideline directed medical treatment, hold off on Jardiance and reevaluate #History Paroxysmal atrial fibrillation Patient has a past medical history of atrial fibrillation, medication includes amiodarone 200 mg p.o. a daily and carvedilol. Consider resuming amiodarone at same dose as patient appears in sinus rhythm. [id number] 4 HAS BLED: 2 points Plan -NO Eliquis as part of home medication given paroxysmal and currently sinus. - Potassium greater than 4 and magnesium greater than 2 -site monitor -Carvedilol and amiodarone resumed #CAD status post angioplasty and stent (2006) #Hyperlipidemia Patient has past medical history of hyperlipidemia on statin placement Plan -Hold off on all atorvastatin 40 mg p.o. at bedtime given mild transaminitis - No aspirin listed, consider resuming if low specific suspicion for GI bleed #JACKLYN, improving JACKLYN likely pre-renal given BUN/Cr change. Consider urine lytes. Per records, poor oral intake, only 170 cc which Lasix may have contributed. Continue Lasix and encourage oral intake within limits. Plan -Avoid nephrotoxins -renally dose medication -encourage oral hydration within fluid restrictions. #Hypertensive emergency, improved #History of hypertension Resume home medication of carvedilol consider starting at 12.5 mg twice daily as patient stated she struggles with hypotension. Valsartan 80 mg daily as a home medication. Plan - Continue to monitor patient's blood pressure -Resume carvedilol at a lower dose 12.5 mg twice daily versus 25 mg twice daily - HOLD given mild JACKLYN valsartan 80 mg daily #Luekocytosis #Possible, CAP #Cough Concern possible URI vs CAP vs reactive leukocytosis with chieft complains of productive cough and fatigue. Flu negative. 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 Mild transaminitis likely secondary medication induced as patient is on atorvastatin versus hepatal cardiorenal syndrome versus hepatitis versus less likely secondary to choledocholithiasis as patient has past medical history of cholecystectomy versus CHAVIS Diagnostics CT abdomen pelvis: Common bile duct 10 mm, no common bile duct stones no pancreatic masses. Diagnostics Abdomen ultrasound common bile duct 0.7 mm no stone, liver 11.7 fatty infiltration some lobular contour mild ascites, normal hepatic portal venous flow. Abdomen/Pelvis-2 mm left renal calculus. Mild to bilateal hydronephrosis. AST 389 and ALT 303, Total Bilirubin 1.3-->(10/20/2024): Total Bili 1.0, AST 205 ALT 249 Plan -Atorvastatin, AST and ALT down trending, considering discharging at a lower dose. -Amiodrone known to cause liver injury as well - Continue to monitor AST's and ALT's - Consider hepatitis panel-->Negative - Outpatient follow-up with GI specialist #Essential finding of bilateral hydronephrosis #Leuocytosis #2 mm left renal calculi On admission patient denied any abdominal tenderness or urinary symptoms. No UA on file. Plan -Continue to monitor urine output although stone is small -Continue to monitor for signs infection given leukocytosis -UA culture pending #History of Esophageal Ulcers #Erosive Gastritis w/ hemorrhage Past medical history of esophageal ulcers and erosive gastritis w/ hemorrhage s/p EGD (01/31/2024. Likely underlying cause of occult stool positive vs iron plan -Resume Protonix -Recommended for outpatient colonoscopy, unsure if patient followed up #Hx of MIcrocytic Anemia #Occult Blood Positive Denied stefany blood, no anemia noted during this admission. Past medical histoyr of Microcytic Anemia, started on iron tables. Health Maintenance: Disp: Pt is currently admitted to floors for further management of admitted for CHF exacerbation, cardiology following. FEN: cardiac DVT: on subQ heparin Code: DNR - The patient's plan was discussed with attending Dr. Sherrie Juarez MD PGY1 Internal Medicine Attending Provider Attestation/Addendum I have personally seen and examined the patient separately on the above date of service and discussed the plan of care with the resident. I reviewed the resident Dr. Kim Juarez consultation progress note and agree with the resident findings and plan in the note above and have also edited the documentation to reflect my findings and plan. Bharat Balderas M.D. Interventional Cardiology
--- NOTE | 2024-10-20 18:16 | PC.CC ---
[address] Giron and she states that patient refused home and health. Dr. Giron with change disposition.
== END 2024-10-20 12:31 | disposition home or self-care (01) | DRG 291 ==
LOC: SERX 12:49 → SERHOLD 13:18 → S2NX 16:57
PROVIDERS: Physician Assistant Medical; Admitting Provider Internal Medicine; Emergency Provider Family Medicine; PCP Internal Medicine; Visit Provider Internal Medicine
DX: I11.0 Hypertensive heart disease with heart failure (principal); I50.33 Acute on chronic diastolic (congestive) heart failure; J96.01 Acute respiratory failure with hypoxia; J18.9 Pneumonia, unspecified organism; R18.8 Other ascites; I16.1 Hypertensive emergency; N13.6 Pyonephrosis; N17.9 Acute kidney failure, unspecified; K74.60 Unspecified cirrhosis of liver; Z96.651 Presence of right artificial knee joint; I25.10 Atherosclerotic heart disease of native coronary artery without angina pectoris; I48.91 Unspecified atrial fibrillation; D72.829 Elevated white blood cell count, unspecified; Z95.5 Presence of coronary angioplasty implant and graft; D50.9 Iron deficiency anemia, unspecified; E78.5 Hyperlipidemia, unspecified; I48.0 Paroxysmal atrial fibrillation; K64.4 Residual hemorrhoidal skin tags; N20.0 Calculus of kidney; Z66 Do not resuscitate; Z79.84 Long term (current) use of oral hypoglycemic drugs; Z79.899 Other long term (current) drug therapy; Z87.440 Personal history of urinary (tract) infections
CPT/HCPCS: 36415; 71045; 74176; 76700; 80053; 80061; 80074; 82270; 83036; 83735; 83880; 84100; 84439; 84443; 84484; 85025; 85610; 85730; 87040; 87086; 87205; 87400; 87502; 87811; 93005; 93306; 94640; 94667; 96365; 96372; 96375; 96376; 97162; 99285; A4314; A9270; J0360; J0696; J1644; J1938; J2270; J2405; J2470

== ENCOUNTER → 2025-01-06 | Outpatient (CLI) | payer MEDICARE, MEDICAID, OTHER, SELFPAY ==
[2025-01-06 14:57] LABS: Basophils # (Auto) 0.1 Thou/mm3 (0.0-0.2); Basophils % (Auto) 1 % (0-2.5); Eosinophils # (Auto) 0.1 Thou/mm3 (0.0-0.5); Eosinophils % (Auto) 1 % (0-10); Hematocrit 40.2 % (36.0-46.0); Hemoglobin 12.9 g/dL (12.0-16.0); Immature Granulocytes Auto 0.01 Thou/mm3 (0.00-0.00); Lymphocytes # (Auto) 1.8 Thou/mm3 (1.0-4.8); Lymphocytes % (Auto) 26 % (10-50); Mean Corpuscular HGB Conc 32.1 g/dl (31.0-37.0); Mean Corpuscular Hemoglobin 30.0 pg (25.0-35.0); Mean Corpuscular Volume 94 fL (80-100); Monocytes # (Auto) 0.6 Thou/mm3 (0.0-0.8); Monocytes % (Auto) 8 % (0-12); Neutrophils # (Auto) 4.5 Thou/mm3 (1.8-7.7); Neutrophils % (Auto) 64 % (37-80); Nucleated Red Blood Cell # 0.00 Thou/mm3 (0.00-0.00); Nucleated Red Blood Cell % 0 /100 WBC (0); Platelet Count 213 Thou/mm3 (140-440); RDW Standard Deviation 50.9 fL (36.4-46.3); Red Blood Count 4.30 Miln/mm3 (4.00-5.20); White Blood Count 6.9 Thou/mm3 (3.6-11.0)
[2025-01-06 15:08] LABS: Glucose Estimated Average 100 mg/dL (80-131); Hemoglobin A1C 5.1 % Hgb (4.8-6.0)
[2025-01-06 15:23] LABS: Alanine Aminotransferase 28 U/L (10-49); Albumin, Serum 3.9 gm/dL (3.4-4.8); Albumin/Globulin Ratio 1.8 (1.2-2.2); Alkaline Phosphatase 83 U/L (46-116); Anion Gap 8 (7-16); Aspartate Amino Transferase 40 U/L (0-34); BUN/Creatinine Ratio 20 Ratio (12-20); Bilirubin,Total 1.0 mg/dL (0.3-1.2); Blood Urea Nitrogen 18 mg/dL (9-23); Calcium 9.5 mg/dL (8.3-10.6); Calcium (Corrected) 9.6 mg/dL (8.5-10.1); Carbon Dioxide 30.9 mMol/L (20.0-31.0); Cardiac Risk Estimate 2.9 RATIO (3.7-5.6); Chloride 104 mMol/L (98-107); Cholesterol 137 mg/dL (132-200); Creatinine (Component) 0.9 mg/dL (0.6-1.3); Free T4 (Free Thyroxine) 1.33 ng/dL (0.89-1.76); Globulin 2.2 gm/dL (2.3-3.5); Glucose 78 mg/dL (74-106); HDL Cholesterol 47 mg/dL (40-60); LDL Cholesterol,Calculated 72 mg/dL (0-130); Osmolality,Calculated 285 (275-295); Potassium 4.2 mMol/L (3.4-5.1); Sodium 143 mMol/L (136-145); Thyroid Stimulating Hormone 1.24 uIU/mL (0.55-4.78); Total Protein 6.1 gm/dL (5.7-8.2); Triglycerides 89 mg/dL (30-150); eGFR > 60 See Note
[2025-01-06 17:33] LABS: Vitamin D 25 Hydroxy Total 45.2 ng/mL (7.3-40.2)
== END | disposition home or self-care (01) ==
PROVIDERS: PCP Internal Medicine; Referring Provider Internal Medicine; Visit Provider Internal Medicine
DX: I11.0 Hypertensive heart disease with heart failure (principal); E11.9 Type 2 diabetes mellitus without complications; E55.9 Vitamin D deficiency, unspecified; E03.9 Hypothyroidism, unspecified
CPT/HCPCS: 36415; 80053; 80061; 82306; 83036; 84439; 84443; 85025